=== PATIENT | female | born 1995 | race Caucasian/White ===

== ENCOUNTER → 2019-01-15 | Outpatient (CLI) | payer OTHER | LOC: LABNPT 11:30 | PROVIDERS: ATTEND Internal Medicine | DX: I13.0 Hypertensive heart and chronic kidney disease with heart failure and stage 1 through stage 4 chronic kidney disease, or unspecified chronic kidney disease (principal); I31.4 Cardiac tamponade; I50.9 Heart failure, unspecified; N18.9 Chronic kidney disease, unspecified | CPT/HCPCS: 85379 ==

== ENCOUNTER 2019-01-29 09:35 | Emergency (ER) | payer MEDICAID, OTHER ==
[~2019-01-29] VITALS: Ht 165.1 cm; Wt 61.2 kg
--- OUTSIDE RECORDS SUMMARY | 2019-01-29 09:41 | XMS REPORT ---
Author Author Migration, Doctor Organization [facility] Address Unknown Phone Unavailable Care Team Providers Care Bait Digger Name Role Phone Migration, Doctor Unavailable Unavailable PROBLEMS Type Condition ICD9-CM Code OXC42-NQ Code Onset Dates Condition Status SNOMED Code Problem Acute viral bronchiolitis 466.19 Jul, 0 440690860 Problem Tobacco use 305.1 05 Jul, 2015 0 093549391 Problem Irregular menses 626.4 05 Jun, 2013 0 835322034 Problem Shortness of breath 786.05 Jan, 0 787177027 Problem Asthma 493.90 Aug, 0 922152008 Problem Postop check Z09 May, 0 007643874 Problem Mild intermittent asthma with exacerbation J45.21 Jul, 0 400996982 Problem Supervision of high risk in third trimester V23.9 May, 0 89695190 Problem Asthma J45.909 18 Aug, 2013 0 760577185 Problem Influenza B 487.1 Nov, 0 40492686 Problem Irregular menses N92.6 05 Jun, 2013 0 242716758 Problem Shortness of breath R06.02 Jan, 0 398191485 Problem Tobacco use Z72.0 Jul, 0 180014880 Problem Expiratory wheezing 786.07 Jan, 0 7338399 Problem Mild intermittent asthma with exacerbation 493.92 Jul, 0 220925701 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51 Active 967906958 Problem Encounter for Nexplanon removal Z30.46 Nov, 0 Problem Influenza B J10.1 Nov, 0 60335633 Problem Postop check V67.00 May, 0 151319073 Problem Encounter for related examination in second trimester Z34.92 Jan, 0 06532295 Problem Supervision of high risk in third trimester O09.93 May, 0 55114204 Problem Asthma with acute exacerbation, unspecified asthma severity, unspecified whether persistent J45.901 Active [id number] ALLERGIES No Information ENCOUNTERS Encounter Location Date Diagnosis [address] [address] Dec, Severe persistent asthma with acute exacerbation J45.[address] [address] Dec, Mild persistent asthma with exacerbation J45.31 and Fever and chills R50.[address] [address] Nov, Asthma with acute exacerbation, unspecified asthma severity, unspecified whether persistent J45.901 and Acute non-recurrent maxillary sinusitis J01.[address] [address] Nov, [facility] [place] [address] [place] [address] Nov, [address] [address] Nov, [address] [address] Nov, Upper respiratory tract infection, unspecified type J06.9 and Asthma with acute exacerbation, unspecified asthma severity, unspecified whether persistent J45.901 [facility] [address] [address] Nov, Strep pharyngitis J02.0 [facility] [address] [address] Sep, [facility] [address] [place] [address] Sep, [facility] [address] [place] [address] Sep, [facility] [address] [address] Aug, [facility] [address] [place] [address] Jul, [facility] [address] [place] [address] Jan, [facility] [address] [place] [address] Jan, [facility] [address] [place] [address] Jan, [facility] [address] [address] Jan, IMMUNIZATIONS No Known Immunizations SOCIAL HISTORY Never Assessed REASON FOR VISIT EMR-[facility] PLAN OF CARE VITAL SIGNS MEDICATIONS Medication Instructions Dosage Frequency Start Date End Date Duration Status Ibuprofen 600 mg take 1 tablet (600 mg) by oral route every 6 hours as needed with food PRN Jan, Active RESULTS No Results PROCEDURES No Known procedures INSTRUCTIONS MEDICATIONS ADMINISTERED No Known Medications MEDICAL (GENERAL) HISTORY Type Description Date Medical History Asthma Medical History Bipolar 1 disorder Medical History Depression Surgical History c-sections x3 Hospitalization History childbirth Hospitalization History asthma
--- OUTSIDE RECORDS SUMMARY | 2019-01-29 09:41 | XMS REPORT | Continuity of Care Document ---
Author Organization Unknown Address Unknown Allergies There is no data. Medications There is no data. Problems There is no data. Procedures There is no data. Results There is no data. Encounters ACCT No. Visit Date/Time Discharge Status Pt. Type Provider Facility Loc./Unit Complaint [id number] 01/20/2011 16:39:00 01/20/2011 23:59:59 [facility] Outpatient [place]ITY GONZALES [place] [id number] 01/15/2019 14:15:00 01/15/2019 23:59:59 [facility] Outpatient LISSET OLIVEROS [facility]
[2019-01-29] MEDS ORDERED: RT-ALBUTEROL SULF 2.5 MG/3 ML PRE-MIX VIAL INH STA (09:50)
--- NOTE | 2019-01-29 09:52 | ED Respiratory ---
General Stated Complaint: SOB; CHEST PAIN Source: patient, family Exam Limitations: no limitations History of Present Illness Date Seen by Provider: Jan 29, 2019 Time Seen by Provider: 09:36 Initial Comments The patient presents to ER by private conveyance with chief complaint of having some chest pain today. Pain radiates to her back. She says it's due to her history of asthma and for the past months she's been out of control having some difficulty breathing requiring more of her nebulized DuoNeb. She says it only gives her minimal relief. It does take away her wheezes but her chest pain is worse when she takes Deep inspiration. Her chest pain is not worse with movement. She has no history of heart disease, blood pressure, CHF, diabetes, thyroid problems, cholesterol or significant familial history of coronary disease or sudden cardiac . Her chest pain on deep inspiration and shortness of breath has been ongoing event for the past month. 3 weeks ago she was put in the hospital at [place] for her asthma exacerbation. She said she was on steroids afterwards for about a week as well as as some kind of antibiotic medicine and she had a steroids her symptoms returned. She does not take an inhaled corticosteroid. She does take montelukast and has an MDI as well as nebulizer. She used twice last night with her last dose being 7 AM today. She tried Tylenol and ibuprofen for her chest discomfort and that did not help much either. She says in the past month both of her children have had influenza. She has had no fevers or chills. Her cough is nonproductive. She says she never tested positive for flu. She still smokes about half a pack per day for the past month; more prior to that. She is trying to stop. A few months ago she ran out of her inhaled steroid and just hasn't been back to her doctor to get it refilled. She says she used to be on Advair before that but it causes thrush so I switched her. Allergies and Home Medications Allergies Coded Allergies: divalproex sodium (Verified Adverse Reaction, Unknown, hallucinations, 01/29) Patient Home Medication List Home Medication List Reviewed: Yes Review of Systems Review of Systems Constitutional: No chills, No fever; malaise EENTM: No ear pain, No eye pain, No tearing Respiratory: cough; No phlegm; short of breath; No stridor; wheezing Cardiovascular: see HPI, chest pain; No edema, No Hx of Intervention, No palpitations, No syncope, No vascular heart diseas Gastrointestinal: No abdominal pain, No constipation, No diarrhea, No nausea, No vomiting Genitourinary: No discharge, No dysuria Musculoskeletal: back pain; No joint pain Past Qkyrvct-Dxbitt-Rgwzxp Hx Patient Social History Recreational Drug Use: No Smoking Status: Current Everyday Smoker Type Used: Cigarettes (half pack per day) Physical Exam Capillary Refill : Height: '" Weight: lbs. oz. kg; BMI Method: General Appearance: WD/WN, no apparent distress Eyes: Bilateral Eye Normal Inspection, Bilateral Eye PERRL, Bilateral Eye EOMI HEENT: PERRL/EOMI, normal ENT inspection, pharynx normal Respiratory: no respiratory distress, no accessory muscle use, wheezing (few expiratory at the bases bilateral) Cardiovascular: normal peripheral pulses, regular rate, rhythm, no edema Extremities: normal range of motion, non-tender, normal inspection, no pedal edema, no calf tenderness, normal capillary refill Neurologic/Psychiatric: alert, normal mood/affect, oriented x 3 Skin: normal color, warm/dry Progress/Results/Core Measures Suspected Sepsis SIRS Temperature: Pulse: Respiratory Rate: Laboratory Tests 01/29/19 09:45: White Blood Count 13.0H Blood Pressure / Mean: Laboratory Tests 01/29/19 09:45: Creatinine 0.69, Platelet Count 144, Total Bilirubin 0.4 Results/Orders Lab Results Laboratory Tests Test 01/29/19 09:45 01/29/19 09:50 Range/Units White Blood Count 13.0 H 4.3-11.0 10^3/uL Red Blood Count 4.39 4.35-5.85 10^6/uL Hemoglobin 14.1 11.5-16.0 G/DL Hematocrit 41 35-52 % Mean Corpuscular Volume 94 80-99 FL Mean Corpuscular Hemoglobin 32 25-34 PG Mean Corpuscular Hemoglobin Concent 34 32-36 G/DL Red Cell Distribution Width 13.0 10.0-14.5 % Platelet Count 144 130-400 10^3/uL Mean Platelet Volume 10.7 H 7.4-10.4 FL Neutrophils (%) (Auto) 73 42-75 % Lymphocytes (%) (Auto) 17 12-44 % Monocytes (%) (Auto) 7 0-12 % Eosinophils (%) (Auto) 3 0-10 % Basophils (%) (Auto) 0 0-10 % Neutrophils # (Auto) 9.5 H 1.8-7.8 X 10^3 Lymphocytes # (Auto) 2.2 1.0-4.0 X 10^3 Monocytes # (Auto) 0.9 0.0-1.0 X 10^3 Eosinophils # (Auto) 0.4 H 0.0-0.3 10^3/uL Basophils # (Auto) 0.1 0.0-0.1 10^3/uL Sodium Level 139 135-145 MMOL/L Potassium Level 3.6 3.6-5.0 MMOL/L Chloride Level 104 98-107 MMOL/L Carbon Dioxide Level 22 21-32 MMOL/L Anion Gap 13 5-14 MMOL/L Blood Urea Nitrogen 7 7-18 MG/DL Creatinine 0.69 0.60-1.30 MG/DL Estimat Glomerular Filtration Rate > 60 BUN/Creatinine Ratio 10 Glucose Level 109 H 70-105 MG/DL Calcium Level 8.5 8.5-10.1 MG/DL Corrected Calcium 8.8 8.5-10.1 MG/DL Total Bilirubin 0.4 0.1-1.0 MG/DL Aspartate Amino Transf (AST/SGOT) 12 5-34 U/L Alanine Aminotransferase (ALT/SGPT) 11 0-55 U/L Alkaline Phosphatase 50 40-136 U/L Total Protein 6.2 L 6.4-8.2 GM/DL Albumin 3.6 3.2-4.5 GM/DL Urine Color YELLOW Urine Clarity CLEAR Urine pH 6.5 5-9 Urine Specific [place] 1.020 1.016-1.022 Urine Protein NEGATIVE NEGATIVE Urine Glucose (UA) NEGATIVE NEGATIVE Urine Ketones NEGATIVE NEGATIVE Urine Nitrite NEGATIVE NEGATIVE Urine Bilirubin NEGATIVE NEGATIVE Urine Urobilinogen 0.2 NORMAL MG/DL Urine Leukocyte Esterase NEGATIVE NEGATIVE Urine RBC (Auto) NEGATIVE NEGATIVE Urine RBC NONE /HPF Urine WBC 0-2 /HPF Urine Squamous Epithelial Cells 5-10 /HPF Urine Crystals NONE /LPF Urine Bacteria NEGATIVE /HPF Urine Casts NONE /LPF Urine Mucus LARGE H /LPF Urine Culture Indicated NO Urine Test NEGATIVE NEGATIVE Urine Opiates Screen POSITIVE H NEGATIVE Urine Oxycodone Screen NEGATIVE NEGATIVE Urine Methadone Screen NEGATIVE NEGATIVE Urine Propoxyphene Screen NEGATIVE NEGATIVE Urine Barbiturates Screen NEGATIVE NEGATIVE Ur Tricyclic Antidepressants Screen NEGATIVE NEGATIVE Urine Phencyclidine Screen NEGATIVE NEGATIVE Urine Amphetamines Screen NEGATIVE NEGATIVE Urine Methamphetamines Screen NEGATIVE NEGATIVE Urine Benzodiazepines Screen NEGATIVE NEGATIVE Urine Cocaine Screen NEGATIVE NEGATIVE Urine Cannabinoids Screen POSITIVE H NEGATIVE My Orders Orders - ANTHONY ERNST Cbc With Automated Diff (01/29/19 09:47) Comprehensive Metabolic Panel (01/29/19 09:47) Drug Screen Stat (Urine) (01/29/19 09:47) Ua Culture If Indicated (01/29/19 09:47) Chest Pa/Lat (2 View) (01/29/19 09:47) Hcg,Qualitative Urine (01/29/19 09:50) Albuterol Pre-Mix Nebs (Rt) (Proventil (01/29/19 09:50) Svn Small Volume Nebulizer (01/29/19 09:50) Vital Signs/I&O Capillary Refill : Progress Note #1: Time: 10:03 Progress Note Patient has some pleuritic chest pain secondary to what sounds like inadequately treated asthma exacerbations. Perhaps she should be started on an inhaled corticosteroid if she is not already. She follows with Dr. Sanz. We can start her on oral steroids today if her blood work and chest x-ray don't demonstrate any evidence of a occult pneumonia. We'll give her a single breathing treatment 2.5 mg of albuterol and reassess to see if the scant wheezes are gone away. She just took ibuprofen before coming so we can offer Toradol before she leaves if she is still having significant chest discomfort. K Tracs report was unremarkable. Progress Note #2: Time: 11:10 Progress Note After the albuterol inhaler the patient has better air movement but still some slight wheezes heard at the bases. She would be appropriate for steroids. Since she received a 5 day course a few weeks ago we'll probably put her on a 7 day course today. Her primary care doctor is out of town for a week so organomegaly ahead and give her a prescription for Advair. We discussed what causes thrush and how important it is that she rinse her mouth out after every use of the Advair. ECG Initial ECG Impression Date: Jan 29, 2019 Initial ECG Impression Time: 09:38 Initial ECG Rate: 86 Initial ECG Rhythm: Normal Sinus Initial ECG Intervals: Normal Initial ECG Impression: Normal Initial ECG Comparisson: No Previous ECG Available Comment No significant ST elevation or depression. Diagnostic Imaging Diagonstic Imaging: Xray Plain Films/CT/US/NM/MRI: chest (2v) Comments [facility] [place], [place] NAME: YULI HILL [facility] REC#: [id number] PT STATUS: REG ER : 1995 PHYSICIAN: ANTHONY ERNST MD ADMIT DATE: 01/29/19/ER FS Draft Date of Exam:01/29/19 CHEST PA/LAT (2 VIEW) PA and lateral chest at 950 hours. INDICATION: Shortness of breath. There are no prior studies available for comparison. FINDINGS: Heart size is within normal limits. The lungs are clear. There is no evidence for failure, pneumonia or for pleural effusion. Mediastinum is not widened. The osseous structures are intact. IMPRESSION: There is no evidence for active disease. Dictated on workstation # [id number] Dict: 01/29/19 1018 Trans: 01/29/19 1023 [id number] Interpreted by: CIPRIANO CAMPBELL MD Electronically signed by: Reviewed: Reviewed by Me Departure Impression Primary Impression: Pleurisy Additional Impression: Asthma Qualified Codes: J45.901 - Unspecified asthma with (acute) exacerbation Disposition: 01 HOME, SELF-CARE Condition: Stable Departure-Patient Inst. Decision time for Depature: 11:12 Referrals: LISSET OLIVEROS MD (PCP/Family) Primary Care Physician Patient Instructions: Pleuritic Chest Pain (DC) Add. Discharge Instructions: Your chest pain will be improved with accommodation of the steroids 2 tablets daily for the first 5 days and then 2 more days of one tablet a day. Instead of using ibuprofen, please use either 2 tablets of eijx-lso-fpbycnm Naprosyn twice a day or the prescription Naprosyn one tablet twice a day for the next 2 weeks to bring down the inflammation in your chest. You may still use Tylenol 1000 g every 8 hours as necessary for breakthrough pain. Continue to use your breathing treatments as prescribed. Plan to make an appointment with your primary provider in the next 1-2 weeks to reassess your asthma and pleuritic chest pain as well as discuss getting back on a scheduled inhaled corticosteroid. 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 After using the Advair you need to rinse and spit some water in your mouth to prevent thrush. Scripts Naproxen (Naprosyn) 500 Mg Tablet 500 MG PO BID for 14 Days, #30 TAB 0 Refills Prov: ANTHONY ERNST 01/29/19 Prednisone (Prednisone) 20 Mg Tab 40 MG PO DAILY, #12 TAB 0 Refills 2 tablets daily for 5 days 1 tablet daily for 2 days Prov: ANTHONY ERNST 01/29/19 Fluticasone/Salmeterol (Advair 250-50 Diskus) 1 Each Blst.w.dev 1 EACH IH BID for 30 Days, #1 EA 0 Refills Prov: ANTHONY ERNST 01/29/19 Work/School Note: Work Release Form Date Seen in the Emergency Department: Jan 29, 2019 Return to Work: Jan 30, 2019 Restrictions: No Restrictions Copy Copies To 1: LISSET OLIVEROS MD, TITUS J Jan 29, 2019 09:52
[2019-01-29 10:20] LABS: HCG,QUALITATIVE URINE NEGATIVE (NEGATIVE)
[2019-01-29 10:21] LABS: AMPHETAMINE SCREEN, URINE NEGATIVE (NEGATIVE); CANNABINOID SCREEN, URINE POSITIVE (NEGATIVE); COCAINE SCREEN URINE NEGATIVE (NEGATIVE); METHAMPHETAMINE SCREEN URINE S NEGATIVE (NEGATIVE); OPIATE SCREEN URINE POSITIVE (NEGATIVE)
[2019-01-29 10:22] LABS: BARBITURATE SCREEN URINE NEGATIVE (NEGATIVE); BENZODIAZEPINES SCREEN URINE NEGATIVE (NEGATIVE); METHADONE STAT NEGATIVE (NEGATIVE); OXYCODONE STAT NEGATIVE (NEGATIVE); PROPOXYPHENE STAT NEGATIVE (NEGATIVE); TRICYCLIC ANTIDEPRESSANTS SCRE NEGATIVE (NEGATIVE)
--- NOTE | 2019-01-29 10:23 | Diagnostic Imaging Report ---
PA and lateral chest at 950 hours. INDICATION: Shortness of breath. There are no prior studies available for comparison. FINDINGS: Heart size is within normal limits. The lungs are clear. There is no evidence for failure, pneumonia or for pleural effusion. Mediastinum is not widened. The osseous structures are intact. IMPRESSION: There is no evidence for active disease. Dictated by: Dictated on workstation # [id number]
[2019-01-29 10:24] LABS: BACTERIA,URINE NEGATIVE /HPF; BILIRUBIN,URINE NEGATIVE (NEGATIVE); CLARITY,URINE CLEAR; COLOR,URINE YELLOW; GLUCOSE, URINE (UA) NEGATIVE (NEGATIVE); KETONES,URINE NEGATIVE (NEGATIVE); LEUKOCYTE ESTERASE ,URINE NEGATIVE (NEGATIVE); NITRITE,URINE NEGATIVE (NEGATIVE); PH,URINE 6.5 (5-9); PROTEIN,URINE NEGATIVE (NEGATIVE); UROBILINOGEN,URINE 0.2 MG/DL (NORMAL); WBC,URINE 0-2 /HPF
[2019-01-29 10:26] LABS: BASOPHILS % (AUTO) 0 % (0-10); EOSINOPHILS % (AUTO) 3 % (0-10); HEMATOCRIT 41 % (35-52); HEMOGLOBIN 14.1 G/DL (11.5-16.0); LYMPHOCYTES % (AUTO) 17 % (12-44); MEAN CORPUSCULAR HEMOGLOBIN 32 PG (25-34); MEAN CORPUSCULAR HGB CONC 34 G/DL (32-36); MEAN CORPUSCULAR VOLUME 94 FL (80-99); MEAN PLATELET VOLUME 10.7 FL (7.4-10.4); MONOCYTES % (AUTO) 7 % (0-12); NEUTROPHILS # (AUTO) 9.5 X 10^3 (1.8-7.8); NEUTROPHILS % (AUTO) 73 % (42-75); PLATELET COUNT 144 10^3/uL (130-400)
[2019-01-29 10:27] LABS: BASOPHILS # (AUTO) 0.1 10^3/uL (0.0-0.1); EOSINOPHILS # (AUTO) 0.4 10^3/uL (0.0-0.3); LYMPHOCYTES # (AUTO) 2.2 X 10^3 (1.0-4.0); MONOCYTES # (AUTO) 0.9 X 10^3 (0.0-1.0)
[2019-01-29 10:28] LABS: BUN/CREATININE RATIO 10; CARBON DIOXIDE 22 MMOL/L (21-32); CHLORIDE 104 MMOL/L (98-107); CREATININE SERUM 0.69 MG/DL (0.60-1.30); GFR ESTIMATED > 60; POTASSIUM 3.6 MMOL/L (3.6-5.0); SODIUM 139 MMOL/L (135-145)
[2019-01-29 10:29] LABS: ALANINE AMINOTRANSFERASE 11 U/L (0-55); ALKALINE PHOSPHATASE 50 U/L (40-136); BILIRUBIN,TOTAL 0.4 MG/DL (0.1-1.0); CALCIUM 8.5 MG/DL (8.5-10.1); GLUCOSE 109 MG/DL (70-105); TOTAL PROTEIN 6.2 GM/DL (6.4-8.2)
[2019-01-29 10:30] LABS: ALBUMIN 3.6 GM/DL (3.2-4.5)
[2019-01-29] MEDS ORDERED: FLUT1DIS26 IH (11:17)
[2019-01-29] MEDS ORDERED: PRD20T PO (11:17)
[2019-01-29] MEDS ORDERED: NAPR-1071 PO (11:17)
[2019-01-29 11:29] VITALS: BP 109/65
== END 2019-01-29 11:34 | disposition home or self-care (01) ==
LOC: EDUNIT# 09:35 → ER FS 09:38
DX: R07.81 Pleurodynia (principal); J45.909 Unspecified asthma, uncomplicated; F17.210 Nicotine dependence, cigarettes, uncomplicated; Z88.8 Allergy status to other drugs, medicaments and biological substances
CPT/HCPCS: 36415; 71046; 80053; 80306; 81000; 84703; 85025

== ENCOUNTER 2019-04-25 05:10 | Emergency (ER) | payer MEDICAID ==
[~2019-04-25] VITALS: Ht 165.1 cm; Wt 61.2 kg
[~2019-04-25 05:10] MED LIST: FLUT1DIS26 IH; NAPR-1071 PO; PRD20T PO
[2019-04-25] MEDS ORDERED: RT-ALBUTEROL/IPRATROPIUM 3 ML (DUONEB) VIAL ONE (05:11)
--- OUTSIDE RECORDS SUMMARY | 2019-04-25 05:16 | XMS REPORT | Continuity of Care Document ---
Author Organization Unknown Address Unknown Allergies Active Description Code Type Severity Reaction Onset Reported/Identified Relationship to Patient Clinical Status Yes DEPAKOTE UNKNOWN OTHER Medications Medication Packaging Start Date Stop Date Route Dosage Sig ACETAMINOPHEN ORAL TABLET 325mg(Tylenol) MG 01/15/2019 02/14/2019 PRN EVERY 6 Hour ALPRAZOLAM TAB 0.25 MG (XANAX) MG 01/15/2019 01/25/2019 PRN Q6H CLONIDINE TAB 0.1 MG (CATAPRES) MG 01/15/2019 01/22/2019 PRN Q6H CALCIUM CARBONATE TAB 500 MG (TUMS) MG 01/15/2019 01/22/2019 PRN Q6H DIPHENHYDRAMINE CAP 25 MG (BENADRYL) MG 01/15/2019 01/22/2019 PRN Q6H HYDROCODONE/APAP 5MG/325MG TAB 5 MG/325MG (DEJUAN-TAB 5/325) TAB 01/15/2019 01/25/2019 PRN Q6H GUAIFENESIN/CODEINE LIQ (ROBITUSSIN AC) ml 01/15/2019 01/22/2019 PRN Q4H ACETAMINOPHEN SUPPOS SUP 650 MG (TYLENOL) MG 01/15/2019 01/22/2019 PRN Q4H ONDANSETRON VIAL INJ 4 MG/2CC (ZOFRAN 2CC VIAL) MG 01/15/2019 01/22/2019 PRN Q4H ALBUTEROL SVN 2.5MG/3CC LIQ 2.5 MG (PROVENTIL IDA 2.5MG/3CC) MG 01/15/2019 01/22/2019 Q4H&0200,0600,1000,1400,1800,2200 ALUM/MAG/SIMETH 30CC LIQ (MYLANTA PLUS) cc 01/15/2019 01/25/2019 PRN Q4H GUAIFENESIN - DM LIQ (ROBITUSSIN DM) MLS 01/15/2019 01/22/2019 PRN Q4H METHYLPREDNISOLONE VIAL INJ 125 MG/2CC (SOLU-MEDROL VIAL) MG 01/15/2019 01/20/2019 Q6H&0600,1200,1800,2359 Docusate sodium 100mg oral capsule (COLACE) 01/15/2019 02/14/2019 PRN BID BUDESONIDE INHALATION SUSP AMP 0.5 MG/2CC (PULMICORT) MG 01/15/2019 01/22/2019 BID&0800,2000 LACTULOSE SYRUP LIQ 20 GM/30CC (CHRONULAC SYRUP) GM 01/15/2019 02/14/2019 BID&0800,2000 MONTELUKAST TAB 10 MG (SINGULAIR) MG 01/15/2019 02/13/2019 Daily&2100 MELATONIN TAB 3 MG (MELATONIN) MG 01/15/2019 01/21/2019 PRN QHS ZOLPIDEM TAB 5 MG (AMBIEN) MG 01/15/2019 01/22/2019 PRN QHS BISACODYL TAB 5 MG (DULCOLAX) MG 01/16/2019 01/22/2019 PRN Daily MONTELUKAST TAB 10 MG (SINGULAIR) MG 01/16/2019 02/14/2019 Daily&0900 POLYETHYLENE GLYCOL POWDER UD PWD (MIRALAX 17GM UNIT DOSE PAKS) gm 01/16/2019 01/22/2019 Daily&0900 BISACODYL SUPPOS 10 MG (DULCOLAX SUPPOS) MG 01/16/2019 01/22/2019 PRN Daily MILK OF MAGNESIA LIQ ml 01/16/2019 02/14/2019 PRN Daily Problems Date Dx Coded Attending Type Code Diagnosis Diagnosed By 01/17/2019 Yenny Coyne 493.91 ASTHMA, UNSPECIFIED TYPE, WITH STATUS ASTHMATICUS 01/17/2019 Yenny Coyne J45.902 UNSPECIFIED ASTHMA WITH STATUS ASTHMATICUS Procedures There is no data. Results Test Result Range Sed Rate - 01/15/19 11:33 Sed Rate 2 mm/hr 9-15 Arterial Blood Gas - 01/15/19 11:33 Base -5.00 mmol/L 1.80-4.20 HCO3 19 mmol/L 20-31 O2 Sat 98 RM AIR % 95-100 pCO2 29 mm/Hg 35-45 pH 7.43 7.35-7.45 PO2 92 mm/Hg 80-95 EKG - 01/15/19 11:33 EKG Complete Urinalysis - 01/15/19 11:33 Icotest N/A Negative Urine Volume Urine Volume Sufficient (10mL) Urine-Appearance Clear Clear Urine-Bacteria Negative Urine-Bilirubin Negative Negative Urine-Blood Negative Negative Urine-Color Yellow Colorless-Lt. Yellow Urine-Epithelial Cells 0-5/HPF Urine-Glucose Negative Negative Urine-Ketones 1+ Negative Urine-Leukocytes Negative Negative Urine-Nitrite Negative Negative Urine-Other Urine Saved if Culture Needed (48hrs from time of collection) Urine-pH 6.5 5-8.5 Urine-Protein Negative Negative Urine-RBC Negative Urine-Specific [place] 1.020 1.000-1.030 Urine-WBC Negative Urobilinogen 0.2 E.U./dL 0.2-1.0 Encounters ACCT No. Visit Date/Time Discharge Status Pt. Type Provider Facility Loc./Unit Complaint [id number] 01/15/2019 11:08:00 01/17/2019 08:02:00 DIS Inpatient [facility] ICU [id number] 01/15/2019 11:49:41 Document Registration [id number] 04/01/2019 15:15:00 04/01/2019 23:59:59 CLS Outpatient LISSET OLIVEROS [facility] [id number] 01/20/2011 16:39:00 01/20/2011 23:59:59 CLS Outpatient CAITY GONZALES DDS
[2019-04-25] MEDS ORDERED: RT-ALBUTEROL/IPRATROPIUM 3 ML (DUONEB) VIAL INH ONE (05:30)
[2019-04-25 05:55] VITALS: BP 109/53
--- NOTE | 2019-04-25 06:02 | ED Respiratory ---
General Chief Complaint: Respiratory Problems Stated Complaint: ASTHMA ATTACK Nursing Triage Note: PT. REPORTED THAT SHE WAS SLEEPING AND WOKE UP WITH WHEEZING BUT SHE WAS NOT ABLE TO USE HER INHALER BECAUSE SHE WAS NOT HOME TO USE IT. Source: patient History of Present Illness Date Seen by Provider: Apr 25, 2019 Time Seen by Provider: 05:44 Initial Comments 24-year-old female presenting with complaints of shortness of breath. She states that she had not planned on staying in town last night and that she stayed over with a friend. When she woke up this morning she was having an asthma attack. She had not brought her inhaler with her from home. [place] minutes away. Because she was so short of breath she came into the emergency department as she did not think she could make it home. She had been exposed to cats and other allergens at her friend's house. She uses inhalers and nebulizers at home. She denied feeling sick earlier in the day. She has not been having any fever or chills. She has not been coughing. Allergies and Home Medications Allergies Coded Allergies: divalproex sodium (Verified Adverse Reaction, Unknown, hallucinations, 01/29/19) Home Medications Fluticasone/Salmeterol 1 Each Blst.w.dev, 1 EACH IH BID Prescribed by: ANTHONY ERNST on 01/29/19 111 Naproxen 500 Mg Tablet, 500 MG PO BID Prescribed by: ANTHONY ERNST on 01/29/19 111 Prednisone 20 Mg Tab, 40 MG PO DAILY 2 tablets daily for 5 days 1 tablet daily for 2 days Prescribed by: ANTHONY ERNST on 01/29/19 1117 Patient Home Medication List Home Medication List Reviewed: Yes Review of Systems Review of Systems Constitutional: No chills, No fever EENTM: no symptoms reported Respiratory: see HPI Cardiovascular: no symptoms reported Gastrointestinal: no symptoms reported Genitourinary: no symptoms reported Musculoskeletal: no symptoms reported Skin: no symptoms reported Past Yuzshvf-Mmcuvu-Ompoiv Hx Past Med/Social Hx: Reviewed Nursing Past Med/Soc Hx Patient Social History Type Used: Cigarettes 2nd Hand Smoke Exposure: Yes Recent Foreign Travel: No Contact w/Someone Who Travel: No Recent Infectious Disease Expo: No Recent Hopitalizations: Yes ([facility], asthma exacerbation) Physical Abuse: No Sexual Abuse: No Mistreated: No Fear: No Seasonal Allergies Seasonal Allergies: No Past Medical History Surgeries: Yes Section Respiratory: Yes Asthma Cardiac: No Neurological: No Genitourinary: No Gastrointestinal: No Musculoskeletal: No Endocrine: No HEENT: No Cancer: No Psychosocial: No Integumentary: No Blood Disorders: No Physical Exam Vital Signs - First Documented 04/25/19 04/25/19 05:17 05:24 Temp 97.2 Pulse 88 Resp 24 B/P (MAP) 109/53 (71) Pulse Ox 91 O2 Delivery Room Air Capillary Refill : Less Than 3 Seconds Height: 5'5.00" Weight: 135lbs. oz. 61.996992cl; BMI Method:Stated General Appearance: WD/WN, mild distress HEENT: PERRL/EOMI, pharynx normal Neck: non-tender, supple, normal inspection Respiratory: chest non-tender, decreased breath sounds, wheezing Cardiovascular: normal peripheral pulses, regular rate, rhythm Neurologic/Psychiatric: alert, normal mood/affect, oriented x 3 Skin: normal color, warm/dry Progress/Results/Core Measures Suspected Sepsis Recent Fever Within 48 Hours: No Infection Criteria Present: None New/Unexplained Altered Menta: No Sepsis Screen: No Definite Risk SIRS Temperature:97.2 Pulse: 88 Respiratory Rate: 24 Blood Pressure 109 /53 Mean: 71 Results/Orders My Orders Orders - SHAKEEL CROCKETT MD Albuterol/Ipra Inhalation Soln (Duoneb I (04/25/19 05:11) Albuterol/Ipra Inhalation Soln (Duoneb I (04/25/19 05:30) Svn Small Volume Nebulizer (04/25/19 05:16) Medications Given in ED Vital Signs/I&O 04/25/19 04/25/19 04/25/19 05:17 05:24 05:55 Temp 97.2 97.2 Pulse 88 88 Resp 24 24 B/P (MAP) 109/53 (71) 109/53 (71) Pulse Ox 91 91 98 O2 Delivery Room Air Room Air Capillary Refill : Less Than 3 Seconds Blood Pressure Mean: 71 Progress Note : Progress Note Given a DuoNeb breathing treatment on arrival. This helped with her wheezing and she was having much better air movement after receiving a treatment. Her O2 sats had improved after the nebulizer treatment as well. Will discharge to home. She denied needing a refill on her medications as she states that the last time she tried to get one of those from the emergency Department her insurance had refused to fill it. Departure Impression Primary Impression: Asthma attack Qualified Codes: J45.21 - Mild intermittent asthma with (acute) exacerbation Disposition: HOME, SELF-CARE Condition: Stable Departure-Patient Inst. Decision time for Depature: 06:01 Referrals: LISSET OLIVEROS MD (PCP/Family) Primary Care Physician Patient Instructions: Asthma, Adult (DC), Avoiding Asthma Triggers Add. Discharge Instructions: Consider having an inhaler with you when you might stay over in town and not be going home Follow up with primary provider for further concerns or more problems All discharge instructions reviewed with patient and/or family. Voiced understanding. SHAKEEL CROCKETT MD Apr 25, 2019 06:02
== END 2019-04-25 06:09 | disposition home or self-care (01) ==
LOC: EDUNIT# 05:10 → ER FS 05:11
DX: J45.901 Unspecified asthma with (acute) exacerbation (principal); Z88.8 Allergy status to other drugs, medicaments and biological substances; Z77.22 Contact with and (suspected) exposure to environmental tobacco smoke (acute) (chronic)
CPT/HCPCS: 94640

== ENCOUNTER 2020-02-07 19:57 | Inpatient (IN) | payer MEDICAID ==
[~2020-02-07] VITALS: Ht 165 cm; Wt 59.6 kg
[2020-02-07] VITALS (8 sets, daily range): BP systolic 102–117; BP diastolic 62–82
[~2020-02-07 19:57] MED LIST changes: -AMOX1TAB11 PO; -AZIT250T12 PO; -IPRA3AMP31; -IPRATROPIUM/; -LEVO500T80; -PRD10T; -PRED10TA22 PO; -RT-ALBUINH IH
[2020-02-07] MEDS ORDERED: LACTATED RINGERS 1,000 ML IV ONE ×2 (20:06→21:27)
--- OUTSIDE RECORDS SUMMARY | 2020-02-07 20:08 | XMS REPORT ---
Author Author Rhona Canales Doctor Organization [facility] Address Unknown Phone Unavailable Care Team Providers Care Civil Engineering Technician Name Role Phone Migration, Doctor Unavailable Unavailable PROBLEMS Type Condition ICD9-CM Code WXK00-MH Code Onset Dates Condition S tatus SNOMED Code Problem Asthma J45.909 Aug, Active 6841746 01 Problem Mild intermittent asthma with exacerbation J45.21 Active 242773648 Problem Moderate asthma with exacerbation, unspecified w hether persistent J45.901 Active 897066752 Problem Moderate persistent asthma with exacerbation J45.4 1 Active 342675169 Problem Moderate persistent asthma with acute exacerbation J45.41 Active 732688197623521 Problem Moderate persistent asthma with acute exacerbation J45.41 Active 531516705049381 Problem Mild intermittent asthma with exacerbation J45.21 Active 727369169 ALLERGIES No Information ENCOUNTERS Encounter Location Date Diagnosis [facility] [address] [place] [address] Oct, Strep pharyngitis J02.0 and Flu-like symptoms R68.[address] [place] [address] Oct, Acute non-recurrent maxillar y sinusitis J01.00 [facility] [address] [place] [address] Sep, Foot pain, left M79.672 [address] [place] [address] Sep, Moderate asthma with exacerb ation, unspecified whether persistent J45.901 ; History of asthma Z87.09 and Pharyngitis, unspecified etiology J02.9 [facility] [address] [place] [address] Sep, Mild intermittent asthma wit h exacerbation J45.21 and Pharyngitis, unspecified etiology J02.9 [facility] [address] [place] [address] Aug, [address] [place] [address] Aug, Encounter for Nexplanon bre jennie Z30.46 and Family planning Z30.09 [facility] [address] [id number] [place] [address] Aug, [address] [place] [address] Aug, Acute non-recurrent maxillar y sinusitis J01.00 and Asthma with acute exacerbation, unspecified asthma severity, unspecified whether persistent J45.901 [facility] [address] [place] [address] Jun, [address] [place] [address] Jun, Pap smear vag w [facility] R87.6 20 [facility] [address] [place] [address] Jun, Moderate persistent asthma w ith acute exacerbation J45.41 and Acute non-recurrent pansinusitis J01.40 [facility] [address] [place] [address] May, Moderate persistent asthma w ith exacerbation J45.41 ; Sore throat J02.9 and Shortness of breath R06.02 [facility] [address] [place] [address] Apr, [facility] [address] [place] [address] Apr, [address] [place] [address] Apr, [address] [place] [address] Apr, [facility] [address] [place] [address] Apr, [facility] [address] [place] [address] Mar, Acute non-recurrent maxillar y sinusitis J01.00 and Asthma J45.909 [facility] [address] [place] [address] February, Pyelonephritis, acute N10 [facility] [address] [place] [address] Jan, [facility] [address] [place] [address] Dec, Severe persistent asthma wit h acute exacerbation J45.51 [facility] [address] [place] [address] Dec, Mild persistent asthma with exacerbation J45.31 and Fever and chills R50.9 [facility] [address] [place] [address] Nov, Asthma with acute exacerbati on, unspecified asthma severity, unspecified whether persistent J45.901 and Acute non-recurrent maxillary sinusitis J01.00 [facility] [address] [place] [address] Nov, [facility] [address] [place] [address] Nov, [facility] [address] [place] [address] Nov, [facility] [address] [place] [address] Nov, Upper respiratory tract infe ction, unspecified type J06.9 and Asthma with acute exacerbation, unspecified asthma severity, unspecified whether persistent J45.901 [facility] [address] [place] [address] Nov, Strep pharyngitis J02.0 [facility] [id number] [place] [address] Sep, [facility] [id number] [place] [address] Sep, [facility] [id number] [place] [address] Sep, [facility] [address] [address] Aug, [facility] [id number] [place] [address] Jul, [facility] [id number] [place] [address] Jan, [facility] [id number] [place] [address] Jan, [facility] [id number] [place] [address] Jan, [facility] [id number] [place] [address] Jan, IMMUNIZATIONS No Known Immunizations SOCIAL HISTORY Never Assessed REASON FOR VISIT PLAN OF CARE VITAL SIGNS MEDICATIONS No Known Medications RESULTS No Results PROCEDURES No Known procedures INSTRUCTIONS MEDICATIONS ADMINISTERED No Known Medications MEDICAL (GENERAL) HISTORY Type Description Date Medical History Asthma Medical History Bipolar 1 disorder Medical History Depression Surgical History c-sections x3 Hospitalization History childbirth Hospitalization History asthma
--- OUTSIDE RECORDS SUMMARY | 2020-02-07 20:09 | XMS REPORT | Continuity of Care Document ---
Author Organization Unknown Address Unknown Phone Unavailable Allergies Active Description Code Type Severity Reaction Onset Reported/Identified Relationship to Patient Clinical Status Yes DEPAKOTE UNKNOWN OTHER Yes divalproex sodium [id number] Drug Allergy Unknown hallucinations 01/29 Yes No Known Drug Allergies [id number] Drug Allergy Unknown N/A 01/29/2019 Medications Medication Packaging Start Date St op Date Route Dosage Sig ACETAMINOPHEN ORAL TABLET 325mg(Tylenol) MG 01/15/2019 02/14/2019 PRN EVERY 6 Hour ALPRAZOLAM TAB 0.25 MG (XANAX) MG 01/15/2019 01/25/2019 PRN Q6H CLONIDINE TAB 0.1 MG (CATAPRES) MG 01/15/2019 01/22/2019 PRN Q6H CALCIUM CARBONATE TAB 500 MG (TUMS) MG 01/15/2019 01/22/2019 PRN Q6H DIPHENHYDRAMINE CAP 25 MG (BENADRYL) MG 01/15/2019 01/22/2019 PRN Q6H HYDROCODONE/APAP 5MG/325MG T AB 5 MG/325MG (DEJUAN-TAB 5/325) TAB 01/15/2019 01/25/2019 PRN Q6H GUAIFENESIN/CODEINE LIQ (ROBITUSSIN AC) ml 01/15/2019 01/22/2019 PRN Q4H ACETAMINOPHEN SUPPOS SUP 650 MG (TYLENOL) MG 01/15/2019 01/22/2019 PRN Q4H ONDANSETRON VIAL INJ 4 MG/2CC (ZOFRAN 2CC VIAL) MG 01/15/2019 01/22/2019 PRN Q4H ALBUTEROL SVN 2.5MG/3CC LIQ 2.5 MG (PROVENTIL IDA 2.5MG/3CC) MG 01/15/2019 01/22/2019 Q4H&0200,0600,1000,1400,1800 ,2200 ALUM/MAG/SIMETH 30CC LIQ (MYLANTA PLUS) cc 01/15/2019 01/25/2019 PRN Q4H GUAIFENESIN - DM LIQ (ROBITUSSIN DM) MLS 01/15/2019 01/22/2019 PRN Q4H METHYLPREDNISOLONE VIAL INJ 125 MG/2CC (SOLU-MEDROL VIAL) MG 01/15/2019 01/20/2019 Q6H&0600,1200,1800,2359 Docusate sodium 100mg oral capsule (COLACE ) 01/15/2019 02/14/2019 PRN BID BUDESONIDE INHALATION SUSP A MP 0.5 MG/2CC (PULMICORT) MG 01/15/2019 01/22/2019 BID&0800,2000 LACTULOSE SYRUP LIQ 20 GM/30 CC (CHRONULAC SYRUP) GM 01/15/2019 02/14/2019 BID&0800,2000 MONTELUKAST TAB 10 MG (SINGULAIR) MG 01/15/2019 02/13/2019 Daily&2100 MELATONIN TAB 3 MG (MELATONIN) MG 01/15/2019 01/21/2019 PRN QHS ZOLPIDEM TAB 5 MG (AMBIEN) M G 01/15/2019 01/22/2019 PRN QHS BISACODYL TAB 5 MG (DULCOLAX) MG 01/16/2019 01/22/2019 PRN Daily MONTELUKAST TAB 10 MG (SINGULAIR) MG 01/16/2019 02/14/2019 Daily&0900 POLYETHYLENE GLYCOL POWDER U D PWD (MIRALAX 17GM UNIT DOSE PAKS) gm 01/16/2019 01/22/2019 Daily&0900 BISACODYL SUPPOS 10 MG (DULCOLAX SUPPOS) MG 01/16/2019 01/22/2019 PRN Daily MILK OF MAGNESIA LIQ ml 01/16/2019 02/14/2019 PRN Daily Problems Date Dx Coded Attending Type Code Diagnosis Diagnosed By 01/16/2019 YENNY VEGA DO, Ot I13.0 HYP HRT CHR KDNY DIS W HRT FAIL AND ST 01/16/2019 YENNY VEGA DO, Ot I31.4 CARDIAC TAMPONADE 01/16/2019 YENNY VEGA DO, Ot I50.9 HEART FAILURE, UNSPECIFIED 01/16/2019 YENNY VEGA DO, Ot N18.9 CHRONIC KIDNEY DISEASE, UNSPECIFIED 01/17/2019 Yenny Vega 493.91 ASTHMA, UNSPECIFIED TYPE, WITH STATUS ASTHMATICUS 01/17/2019 Yenny Vega J45.902 UNSPECIFIED ASTHMA WITH STATUS ASTHMATICUS 01/29/2019 SUJATA ELDER, ANTHONY J Ot F17.210 NICOTINE DEPENDENCE, CIGARETTES, UNCOMPL 01/29/2019 SUJATA ELDER, ANTHONY J Ot J45.909 UNSPECIFIED ASTHMA, UNCOMPLICATED 01/29/2019 SUJATA ELDER, ANTHONY J Ot R07. 81 PLEURODYNIA 01/29/2019 SUJATA ELDER, ANTHONY J Ot R07. 9 CHEST PAIN, UNSPECIFIED 01/29/2019 SUJATA ELDER, ANTHONY J Ot Z88. 8 ALLERGY STATUS TO OTH DRUG/MEDS/BIOL SUB 01/31/2019 SUJATA ELDER, ANTHONY J Ot F17.210 NICOTINE DEPENDENCE, CIGARETTES, UNCOMPL 01/31/2019 SUJATA ELDER, ANTHONY J Ot J45.909 UNSPECIFIED ASTHMA, UNCOMPLICATED 01/31/2019 ANTHONY ERNST MD J Ot R07. 81 PLEURODYNIA 01/31/2019 SUJATA ELDER, ANTHONY Mathis Ot R07. 9 CHEST PAIN, UNSPECIFIED 01/31/2019 SUJATA ELDER, ANTHONY J Ot Z88. 8 ALLERGY STATUS TO OTH DRUG/MEDS/BIOL SUB 02/12/2019 VEGA DO, YENNY Ot I13.0 HYP HRT CHR KDNY DIS W HRT FAIL AND ST 02/12/2019 VEGA DO, YENNY Ot I31.4 CARDIAC TAMPONADE 02/12/2019 VEGA DO, YENNY Ot I50.9 HEART FAILURE, UNSPECIFIED 02/12/2019 VEGA DO, YENYN Ot N18.9 CHRONIC KIDNEY DISEASE, UNSPECIFIED 02/14/2019 VEGA DO, YENNY Ot I13.0 HYP HRT CHR KDNY DIS W HRT FAIL AND ST 02/14/2019 VEGA DO, YENNY Ot I31.4 CARDIAC TAMPONADE 02/14/2019 VEGA DO, YENNY Ot I50.9 HEART FAILURE, UNSPECIFIED 02/14/2019 VEGA DO, YENNY Ot N18.9 CHRONIC KIDNEY DISEASE, UNSPECIFIED 04/25/2019 SHAKEEL CROCKETT MD, Ot J45.9 01 UNSPECIFIED ASTHMA WITH (ACUTE) EXACERBA 04/25/2019 SHAKEEL CROCKETT MD Ot R06.0 2 SHORTNESS OF BREATH 04/25/2019 SHAKEEL CROCKETT MD, Ot Z77.2 2 CNTCT W AND EXPSR TO ENVIRON TOBACCO SMO 04/25/2019 SHAKEEL CROCKETT MD, Ot Z88.8 ALLERGY STATUS TO OTH DRUG/MEDS/BIOL SUB 04/30/2019 SHAKEEL CROCKETT MD, Ot J45.9 01 UNSPECIFIED ASTHMA WITH (ACUTE) EXACERBA 04/30/2019 SHAKEEL CROCKETT MD, Ot R06.0 2 SHORTNESS OF BREATH 04/30/2019 SHAKEEL CROCKETT MD, Ot Z77.2 2 CNTCT W AND EXPSR TO ENVIRON TOBACCO SMO 04/30/2019 SHAKEEL CROCKETT MD, Ot Z88.8 ALLERGY STATUS TO OTH DRUG/MEDS/BIOL SUB 02/07/2020 VEGA DO, YENNY Ot I13.0 HYP HRT CHR KDNY DIS W HRT FAIL AND ST 02/07/2020 VEGA DO, YENNY Ot I31.4 CARDIAC TAMPONADE 02/07/2020 VEGA DO, YENNY Ot I50.9 HEART FAILURE, UNSPECIFIED 02/07/2020 VEGA DO, YENNY Ot N18.9 CHRONIC KIDNEY DISEASE, UNSPECIFIED Procedures There is no data. Results Test Result Range Fibrin D-dimer FEU measurement in platel et poor plasma (mass/volume) - 01/15/19 11:30 Fibrin D-dimer FEU measurement in platelet poor plasma (mass/volume) 0.28 ug/mL 0.00-0.49 Sed Rate - 01/15/19 11:33 Sed Rate [...] Negative Urine-Blood Negative Negative Urine-Color Yellow Colorless-Lt. [place] ow Urine-Epithelial Cells 0-5/HPF Urine-Glucose Negative Negative Urine-Ketones 1+ Negative Urine-Leukocytes Negative Negative Urine-Nitrite Negative Negative Urine-Other Urine Saved if Culture Need ed (48hrs from time of collection) Urine-pH 6.5 5-8.5 Urine-Protein Negative Negative Urine-RBC Negative Urine-Specific [place] 1.020 1.000-1 .030 Urine-WBC Negative Urobilinogen 0.2 E.U./dL 0.2-1.0 Complete blood count (CBC) with automate d white blood cell (WBC) differential - 01/29/19 09:45 Blood leukocytes automated count (number/volume) 13.0 10*3/uL 4.3-11.0 Blood erythrocytes automated count (number/volume) 4.39 10*6/uL 4.35-5.85 Venous blood hemoglobin measurement (mass/volume) 14.1 g/dL 11.5-16.0 Blood hematocrit (volume fraction) 41 % 35-52 Automated erythrocyte mean corpuscular volume 94 [ foz_us] 80-99 Automated erythrocyte mean corpuscular h emoglobin (mass per erythrocyte) 32 pg 25-34 Automated erythrocyte mean corpuscular h emoglobin concentration measurement (mass/volume) 34 g/dL 32-36 Automated erythrocyte distribution width ratio 13. 0 % 10.0- 14.5 Automated blood platelet count (count/volume) 144 10*3/uL 130-400 Automated blood platelet mean volume measurement 10.7 [foz_us] 7.4-10.4 Automated blood neutrophils/100 leukocytes 73 % 42-75 Automated blood lymphocytes/100 leukocytes 17 % 12-44 Blood monocytes/100 leukocytes 7 % 0-12 Automated blood eosinophils/100 leukocytes 3 % 0-10 Automated blood basophils/100 leukocytes 0 % 0-10 Blood neutrophils automated count (number/volume) 9.5 10*3 1.8-7.8 Blood lymphocytes automated count (number/volume) 2.2 10*3 1.0-4.0 Blood monocytes automated count (number/volume) 0. 9 10*3 0.0-1.0 Automated eosinophil count 0.4 10*3/uL 0 .0-0.3 Automated blood basophil count (count/volume) 0.1 10*3/uL 0.0-0.1 Comprehensive metabolic panel - 01/29/19 09:45 Serum or plasma sodium measurement (moles/volume) 139 mmol/L 135-145 Serum or plasma potassium measurement (moles/volume) 3.6 mmol/L 3.6-5.0 Serum or plasma chloride measurement (moles/volume) 104 mmol/L 98-107 Carbon dioxide 22 mmol/L 21-32 Serum or plasma anion gap determination (moles/volume) 13 mmol/L 5-14 Serum or plasma urea nitrogen measurement (mass/volume ) 7 mg/dL 7-18 Serum or plasma creatinine measurement (mass/volume) 0.69 mg/dL 0.60-1.30 Serum or plasma urea nitrogen/creatinine mass ratio 10 NRG Serum or plasma creatinine measurement w ith calculation of estimated glomerular filtration rate > NRG Serum or plasma glucose measurement (mass/volume) 109 mg/dL 70-105 Serum or plasma calcium measurement (mass/volume) 8.5 mg/dL 8.5-10.1 Serum or plasma total bilirubin measurement (mass/volu me) 0.4 mg/dL 0.1-1.0 Serum or plasma alkaline phosphatase oriana surement (enzymatic activity/volume) 50 U/L 40-136 Serum or plasma aspartate aminotransfera se measurement (enzymatic activity/volume) 12 U/L 5-34 Serum or plasma alanine aminotransferase measurement (enzymatic activity/volume) 11 U/L 0-55 Serum or plasma protein measurement (mass/volume) 6.2 g/dL 6.4-8.2 Serum or plasma albumin measurement (mass/volume) 3.6 g/dL 3.2-4.5 CALCIUM CORRECTED 8.8 mg/dL 8.5-10.1 Urine beta human chorionic gonadotropin (hCG) measurement - 01/29/19 09:50 Urine beta human chorionic gonadotropin (hCG) measurem ent NEGATIVE NEGATIVE Urine drug screening test - 01/29/19 09: 50 Urine phencyclidine detection by screening method NEGATIVE NEGATIVE Urine benzodiazepines detection by screening method NEGATIVE NEGATIVE Urine cocaine detection NEGATIVE NEGATI VE Urine amphetamines detection by screening method N EGATIVE NEGATIVE Urine methamphetamine detection by screening method NEGATIVE NEGATIVE Urine cannabinoids detection by screening method P OSITIVE NEGATIVE Urine opiates detection by screening method POSITI VE NEGATIVE Urine barbiturates detection NEGATIVE N EGATIVE Screening urine tricyclic antidepressants detection NEGATIVE NEGATIVE Urine methadone detection by screening method NEGA TIVE NEGATIVE Urine oxycodone detection NEGATIVE NEGA TIVE Urine propoxyphene detection NEGATIVE N EGATIVE Complete urinalysis with reflex to cultu re - 01/29/19 09:50 Urine color determination YELLOW NRG Urine clarity determination CLEAR NR G Urine pH measurement by test strip 6.5 5-9 Specific gravity of urine by test strip 1.020 1.016-1.022 Urine protein assay by test strip, semi-quantitative NEGATIVE NEGATIVE Urine glucose detection by automated test strip NE GATIVE NEGATIVE Erythrocytes detection in urine sediment by light micr oscopy NEGATIVE NEGATIVE Urine ketones detection by automated test strip NE GATIVE NEGATIVE Urine nitrite detection by test strip NEGATIVE NEGATIVE Urine total bilirubin detection by test strip NEGA TIVE NEGATIVE Urine urobilinogen measurement by automated test strip (mass/volume) 0.2 mg/dL NORMAL Urine leukocyte esterase detection by dipstick NEG ATIVE NEGATIVE Automated urine sediment erythrocyte cou nt by microscopy (number/high power field) NONE NRG Automated urine sediment leukocyte count by microscopy (number/high power field) [HPF] NRG Bacteria detection in urine sediment by light microsco py NEGATIVE NRG Squamous epithelial cells detection in u rine sediment by light microscopy 5-10 NRG Crystals detection in urine sediment by light microsco py NONE NRG Casts detection in urine sediment by light microscopy NONE NRG Mucus detection in urine sediment by light microscopy LARGE NRG Complete urinalysis with reflex to culture NO NRG SUREPATH PAP RFX HPV mRNA E6/E7 - 14:51 CLINICAL INFORMATION: NRG LMP: NRG PREV. PAP: NRG PREV. BX: NRG SOURCE: Vagina NRG STATEMENT OF ADEQUACY: NRG INTERPRETATION/RESULT: NRG EMBROIDERY MACHINE OPERATOR: NRG REVIEW EMBROIDERY MACHINE OPERATOR: NRG INFECTION: NRG COMMENT NRG Complete blood count (CBC) with automate d white blood cell (WBC) differential - 02/07/20 15:35 Blood leukocytes automated count (number/volume) 15.6 10*3/uL 4.3-11.0 Blood erythrocytes automated count (number/volume) 4.67 10*6/uL 4.35-5.85 Venous blood hemoglobin measurement (mass/volume) 14.6 g/dL 11.5-16.0 Blood hematocrit (volume fraction) 43 % 35-52 Automated erythrocyte mean corpuscular volume 93 [ foz_us] 80-99 Automated erythrocyte mean corpuscular h emoglobin (mass per erythrocyte) 31 pg 25-34 Automated erythrocyte mean corpuscular h emoglobin concentration measurement (mass/volume) 34 g/dL 32-36 Automated erythrocyte distribution width ratio 12. 6 % 10.0- 14.5 Automated blood platelet count (count/volume) 175 10*3/uL 130-400 Automated blood platelet mean volume measurement 11.4 [foz_us] 7.4-10.4 Automated blood neutrophils/100 leukocytes 95 % 42-75 Automated blood lymphocytes/100 leukocytes 4 % 12-44 Blood monocytes/100 leukocytes 1 % 0-12 Automated blood eosinophils/100 leukocytes 0 % 0-10 Automated blood basophils/100 leukocytes 0 % 0-10 Blood neutrophils automated count (number/volume) 14.8 10*3 1.8-7.8 Blood lymphocytes automated count (number/volume) 0.6 10*3 1.0-4.0 Blood monocytes automated count (number/volume) 0. 2 10*3 0.0-1.0 Automated eosinophil count 0.0 10*3/uL 0 .0-0.3 Automated blood basophil count (count/volume) 0.0 10*3/uL 0.0-0.1 Comprehensive metabolic panel - 02/07/20 15:35 Serum or plasma sodium measurement (moles/volume) 140 mmol/L 135-145 Serum or plasma potassium measurement (moles/volume) 4.2 mmol/L 3.6-5.0 Serum or plasma chloride measurement (moles/volume) 102 mmol/L 98-107 Carbon dioxide 23 mmol/L 21-32 Serum or plasma anion gap determination (moles/volume) 15 mmol/L 5-14 Serum or plasma urea nitrogen measurement (mass/volume ) 9 mg/dL 7-18 Serum or plasma creatinine measurement (mass/volume) 0.73 mg/dL 0.60-1.30 Serum or plasma urea nitrogen/creatinine mass ratio 12 NRG Serum or plasma creatinine measurement w ith calculation of estimated glomerular filtration rate > NRG Serum or plasma glucose measurement (mass/volume) 116 mg/dL 70-105 Serum or plasma calcium measurement (mass/volume) 9.5 mg/dL 8.5-10.1 Serum or plasma total bilirubin measurement (mass/volu me) 0.2 mg/dL 0.1-1.0 Serum or plasma alkaline phosphatase oriana surement (enzymatic activity/volume) 65 U/L 40-136 Serum or plasma aspartate aminotransfera se measurement (enzymatic activity/volume) 17 U/L 5-34 Serum or plasma alanine aminotransferase measurement (enzymatic activity/volume) 13 U/L 0-55 Serum or plasma protein measurement (mass/volume) 7.4 g/dL 6.4-8.2 Serum or plasma albumin measurement (mass/volume) 4.4 g/dL 3.2-4.5 CALCIUM CORRECTED 9.2 mg/dL 8.5-10.1 Manual absolute plasma cell count - 01/21 05/11 15:35 Blood monocytes/100 leukocytes 1 % NRG Manual blood segmented neutrophils/100 leukocytes 89 % NRG Blood band neutrophils/100 leukocytes 6 % NRG Manual blood lymphocytes/100 leukocytes 4 % NRG Manual eosinophils/100 leukocytes in nose 0 % NRG Manual blood basophils/100 leukocytes 0 % NRG Blood erythrocyte morphology finding identification NORMAL NRG Fibrin D-dimer FEU measurement in platel et poor plasma (mass/volume) - 02/07/20 15:35 Fibrin D-dimer FEU measurement in platelet poor plasma (mass/volume) 0.37 ug/mL 0.00-0.49 Encounters ACCT No. Visit Date/Time Discharge Status Pt. Type Provider Facility Loc./Unit Complaint [id number] 01/15/2019 11:08:00 01/17/2019 08:02: 00 DIS Inpatient [facility] enter ICU [id number] 01/15/2019 11:49:41 Document Registration [id number] 04/25/2019 05:11:00 06:09:00 DIS Emergency KEIRA ELDER, SHAKEEL Isabel [facility] ER FS ASTHMA ATTACK [id number] 01/29/2019 09:38:00 11:34:00 DIS Emergency ANTHONY ERNST MD [facility] ER FS SOB; CHEST PAIN [id number] 01/15/2019 11:30:00 23:59:59 CLS Outpatient YENNY VEGA DO [facility] LABNPT [id number] 02/07/2020 19:59:[address] Emergency SARAH MARTINEZ MD [facility] ER SOB [id number] 02/07/2020 15:13:[address] Outpatient SASCHA ENNIS APRN [facility] LAB FS SOB,ACUTE MIDLINE THORACIC B ACK PAIN [id number] 02/07/2020 13:01:[address] Outpatient SASCHA ENNIS APRN [facility] RAD FS R06.02 M54.6 [id number] 11/16/2019 16:50:00 11/16/2019 23:59:5 9 C[facility] [id number] 07/02/2019 14:45:00 Document Registration [id number] 01/20/2011 16:39:00 01/20/2011 23:59: 59 CLS Outpatient CAITY GONZALES DDS
[2020-02-07] MEDS ORDERED: PRD10T ×2 (20:35)
[2020-02-07] MEDS ORDERED: LEVO500T80 ×2 (20:35)
[2020-02-07] MEDS ORDERED: IPRATROPIUM/ ×2 (20:35)
[2020-02-07] MEDS ORDERED: IPRA3AMP31 ×2 (20:35)
[2020-02-07 20:43] LABS: BASOPHILS % (AUTO) 0 % (0-10); EOSINOPHILS % (AUTO) 0 % (0-10); HEMATOCRIT 40 % (35-52); HEMOGLOBIN 14.1 G/DL (11.5-16.0); LYMPHOCYTES # (AUTO) 0.6 X 10^3 (1.0-4.0); LYMPHOCYTES % (AUTO) 6 % (12-44); MEAN CORPUSCULAR HEMOGLOBIN 32 PG (25-34); MEAN CORPUSCULAR HGB CONC 35 G/DL (32-36); MEAN CORPUSCULAR VOLUME 92 FL (80-99); MEAN PLATELET VOLUME 11.3 FL (7.4-10.4); MONOCYTES # (AUTO) 0.2 X 10^3 (0.0-1.0); MONOCYTES % (AUTO) 2 % (0-12); NEUTROPHILS # (AUTO) 10.2 X 10^3 (1.8-7.8); NEUTROPHILS % (AUTO) 93 % (42-75); PLATELET COUNT 168 10^3/uL (130-400)
[2020-02-07 20:44] LABS: BILIRUBIN,URINE NEGATIVE (NEGATIVE); CLARITY,URINE CLEAR; COLOR,URINE YELLOW; GLUCOSE, URINE (UA) NEGATIVE (NEGATIVE); KETONES,URINE NEGATIVE (NEGATIVE); LEUKOCYTE ESTERASE ,URINE NEGATIVE (NEGATIVE); NITRITE,URINE NEGATIVE (NEGATIVE); PROTEIN,URINE NEGATIVE (NEGATIVE)
[2020-02-07 20:57] LABS: BACTERIA,URINE TRACE /HPF
[2020-02-07 21:01] LABS: FIBRIN DEGRADATION PRODUCTS 0.28 UG/ML (0.00-0.49); PROTHROMBIN TIME PATIENT 13.4 SEC (12.2-14.7)
[2020-02-07 21:04] LABS: ALANINE AMINOTRANSFERASE 14 U/L (0-55); ALKALINE PHOSPHATASE 56 U/L (40-136); BILIRUBIN,TOTAL 0.2 MG/DL (0.1-1.0); BUN/CREATININE RATIO 11; CALCIUM 9.1 MG/DL (8.5-10.1); CARBON DIOXIDE 21 MMOL/L (21-32); CHLORIDE 104 MMOL/L (98-107); CREATININE SERUM 0.84 MG/DL (0.60-1.30); GFR ESTIMATED > 60; GLUCOSE 118 MG/DL (70-105); POTASSIUM 4.1 MMOL/L (3.6-5.0); SODIUM 136 MMOL/L (135-145); TOTAL PROTEIN 6.9 GM/DL (6.4-8.2)
[2020-02-07 21:17] LABS: LYMPHOCYTES % (MANUAL) 6 %; MONOCYTES % (MANUAL) 1 %; NEUTROPHILS % (MANUAL) 93 %; RBC MORPH NORMAL
[2020-02-07 21:18] LABS: ERYTHROCYTE SEDIMENTATION RATE 10 MM/HR (0-20)
[2020-02-07] MEDS ORDERED: cefTRIAXone FOR IV USE 1,000 MG in WATER (STERILE) FOR INJECTION 10 ML IV STA (21:27)
--- NOTE | 2020-02-07 22:14 | ED General ---
General Chief Complaint: Respiratory Problems Stated Complaint: SOB Nursing Triage Note: c/o chest pressure with deep breaths, soa. seen at [facility] for same et. reports "concerning CT" denies exposure Nursing Sepsis Screen: No Definite Risk Source of Information: Patient Exam Limitations: No Limitations History of Present Illness Date Seen by Provider: Feb 07, 2020 Time Seen by Provider: 21:33 Initial Comments Here with report of shortness of air, cough, central chest discomfort and asthma concerns. Seen at [facility] in [place] and had COVID screening. This was negative x 2. She did get a chest x-ray, CT scan on labs today which were concerning for right upper lung infiltrate. She was started on Levaquin and prednisone yesterday. Patient states that her asthma has been pretty active recently and has caused her problems. She does smoke cigarettes but has only mild to smoke 2 cigarettes per day recently. [facility] providers concerned about infiltrate appearance on CT and sent her here for further evaluation and concerns for possible COVID-19 despite the negative test. CT report notes mucus plugging which would fit with the asthma exacerbation with follow-up on pneumonia. Timing/Duration: 4-5 Days Severity: Moderate Modifying Factors: improves with Medication Associated Systoms: No Chest Pain; Cough, Fever/Chills; No Nausea/Vomiting; Shortness of Air; No Weakness Allergies and Home Medications Allergies Coded Allergies: divalproex sodium (Verified Adverse Reaction, Unknown, hallucinations, 01/29/19) Home Medications Fluticasone/Salmeterol 1 Each Blst.w.dev, 1 EACH IH BID Prescribed by: ANTHONY ERNST on 01/29/19 111 Naproxen 500 Mg Tablet, 500 MG PO BID Prescribed by: ANTHONY ERNST on 01/29/19 1117 Patient Home Medication List Home Medication List Reviewed: Yes Review of Systems Review of Systems Constitutional: see HPI EENTM: no symptoms reported Respiratory: see HPI, cough, short of breath, wheezing Cardiovascular: see HPI; No edema, No palpitations Gastrointestinal: No abdominal pain, No nausea, No vomiting Genitourinary: no symptoms reported Musculoskeletal: no symptoms reported All Other Systems Reviewed Negative Unless Noted: Yes Past Wewzzch-Nsuwpf-Fpvlro Hx Past Med/Social Hx: Reviewed Nursing Past Med/Soc Hx Patient Social History Alcohol Use: Denies Use Recreational Drug Use: No Smoking Status: Current Everyday Smoker Type Used: Cigarettes 2nd Hand Smoke Exposure: Yes Recent Foreign Travel: No Contact w/Someone Who Travel: No Recent Infectious Disease Expo: No Recent Hopitalizations: No Physical Abuse: No Sexual Abuse: No Mistreated: No Fear: No Immunizations Up To Date Tetanus Booster (TDap): Unknown Seasonal Allergies Seasonal Allergies: No Past Medical History Surgeries: Yes Section Respiratory: Yes Asthma Cardiac: No Neurological: No : No (implant) Genitourinary: No Gastrointestinal: No Musculoskeletal: No Endocrine: No HEENT: No Cancer: No Psychosocial: No Integumentary: No Blood Disorders: No Family Medical History Reviewed Nursing Family Hx Physical Exam-Suspected Sepsis Physical Exam Vital Signs Vital Signs - First Documented 02/07/20 20:13 Temp 36.8 Pulse 90 Resp 16 B/P (MAP) 113/77 (89) O2 Delivery Room Air Capillary Refill : Less Than 3 Seconds Blood Pressure Mean: 89 Height, Weight, BMI Height: 5'5.00" Weight: 135lbs. oz. 61.664155bh; 21.00 BMI Method:Stated General Appearance: No Apparent Distress, WD/WN HEENT: PERRL/EOMI, Pharynx Normal Neck: Non Tender, Supple Respiratory: Lungs Clear, Normal Breath Sounds Cardiovascular: Regular Rate, Rhythm, No Murmur Gastrointestinal: Non Tender, Soft Extremity: Normal Range of Motion, Non Tender Neurologic/Psychiatric: Alert, Oriented x3 Skin: normal color, warm/dry Focused Exam Lactate Level 02/07/20 20:25: Lactic Acid Level 3.88*H Lactic Acid Level Laboratory Tests Test 02/07/20 20:25 Lactic Acid Level 3.88 MMOL/L (0.50-2.00) *H Progress/Results/Core Measures Suspected Sepsis Recent Fever Within 48 Hours: No Infection Criteria Present: None New/Unexplained Altered Menta: No Sepsis Screen: No Definite Risk SIRS Temperature: Pulse: 90 Respiratory Rate: 16 Laboratory Tests 02/07/20 20:25: White Blood Count 11.0 Blood Pressure 113 /77 Mean: 89 02/07/20 20:25: Lactic Acid Level 3.88*H Laboratory Tests 02/07/20 20:25: Creatinine 0.84, INR Comment 1.0, Platelet Count 168, Total Bilirubin 0.2 Results/Orders Lab Results Laboratory Tests Test 4/17/20 20:20 02/07/20 20:25 Range/Units Urine Color YELLOW Urine Clarity CLEAR Urine pH 8.0 5-9 Urine Specific [place] 1.010 L 1.016-1.022 Urine Protein NEGATIVE NEGATIVE Urine Glucose (UA) NEGATIVE NEGATIVE Urine Ketones NEGATIVE NEGATIVE Urine Nitrite NEGATIVE NEGATIVE Urine Bilirubin NEGATIVE NEGATIVE Urine Urobilinogen 0.2 < = 1.0 MG/DL Urine Leukocyte Esterase NEGATIVE NEGATIVE Urine RBC (Auto) NEGATIVE NEGATIVE Urine RBC NONE /HPF Urine WBC NONE /HPF Urine Squamous Epithelial Cells 2-5 /HPF Urine Crystals NONE /LPF Urine Bacteria TRACE /HPF Urine Casts NONE /LPF Urine Mucus NEGATIVE /LPF Urine Culture Indicated CULTURE PENDING White Blood Count 11.0 4.3-11.0 10^3/uL Red Blood Count 4.37 4.35-5.85 10^6/uL Hemoglobin 14.1 11.5-16.0 G/DL Hematocrit 40 35-52 % Mean Corpuscular Volume 92 80-99 FL Mean Corpuscular Hemoglobin 32 25-34 PG Mean Corpuscular Hemoglobin Concent 35 32-36 G/DL Red Cell Distribution Width 13.0 10.0-14.5 % Platelet Count 168 130-400 10^3/uL Mean Platelet Volume 11.3 H 7.4-10.4 FL Neutrophils (%) (Auto) 93 H 42-75 % Lymphocytes (%) (Auto) 6 L 12-44 % Monocytes (%) (Auto) 2 0-12 % Eosinophils (%) (Auto) 0 0-10 % Basophils (%) (Auto) 0 0-10 % Neutrophils # (Auto) 10.2 H 1.8-7.8 X 10^3 Lymphocytes # (Auto) 0.6 L 1.0-4.0 X 10^3 Monocytes # (Auto) 0.2 0.0-1.0 X 10^3 Eosinophils # (Auto) 0.0 0.0-0.3 10^3/uL Basophils # (Auto) 0.0 0.0-0.1 10^3/uL Neutrophils % (Manual) 93 % Lymphocytes % (Manual) 6 % Monocytes % (Manual) 1 % Blood Morphology Comment NORMAL Erythrocyte Sedimentation Rate 10 0-20 MM/HR Prothrombin Time 13.4 12.2-14.7 SEC INR Comment 1.0 0.8-1.4 Activated Partial Thromboplast Time 27 24-35 SEC D-Dimer 0.28 0.00-0.49 UG/ML Sodium Level 136 135-145 MMOL/L Potassium Level 4.1 3.6-5.0 MMOL/L Chloride Level 104 98-107 MMOL/L Carbon Dioxide Level 21 21-32 MMOL/L Anion Gap 11 5-14 MMOL/L Blood Urea Nitrogen 9 7-18 MG/DL Creatinine 0.84 0.60-1.30 MG/DL Estimat Glomerular Filtration Rate > 60 BUN/Creatinine Ratio 11 Glucose Level 118 H 70-105 MG/DL Lactic Acid Level 3.88 *H 0.50-2.00 MMOL/L Calcium Level 9.1 8.5-10.1 MG/DL Corrected Calcium 9.1 8.5-10.1 MG/DL Total Bilirubin 0.2 0.1-1.0 MG/DL Aspartate Amino Transf (AST/SGOT) 14 5-34 U/L Alanine Aminotransferase (ALT/SGPT) 14 0-55 U/L Alkaline Phosphatase 56 40-136 U/L Lactate Dehydrogenase 167 125-220 U/L C-Reactive Protein High Sensitivity 1.67 H 0.00-0.50 MG/DL Total Protein 6.9 6.4-8.2 GM/DL Albumin 4.0 3.2-4.5 GM/DL Procalcitonin 0.04 <0.10 NG/ML My Orders Orders - SARAH MARTINEZ MD Cbc With Automated Diff (02/07/20 20:06) Comprehensive Metabolic Panel (02/07/20 20:06) Blood Culture (02/07/20 20:06) Sputum Culture (02/07/20 20:) Urinalysis (02/07/20 20:) Urine Culture (02/07/20 20:06) Protime With Inr (02/07/20 20:06) Partial Thromboplastin Time (02/07/20 20:06) Ed Iv/Invasive Line Start (02/07/20 20:) Vital Signs Adult Sepsis Patie Q15M (02/07/20 20:06) O2 (02/07/20 20:06) Remove Rings In Anticipation O (02/07/20 20:06) Lactic Acid Analyzer (02/07/20 20:) Fibrin Degradation Products (02/07/20 20:06) Procalcitonin (Pct) (02/07/20 20:06) Hs C Reactive Protein (02/07/20 20:06) Erythrocyte Sedimentation Rate (02/07/20 20:06) LDH (02/07/20 20:06) Lactated Ringers (Lr 1000 Ml Iv Solution (02/07/20 20:06) Manual Differential (02/07/20 20:25) Ceftriaxone For Iv Use (Rocephin For I (02/07/20 21:27) Lactated Ringers (Lr 1000 Ml Iv Solution (02/07/20 21:27) Covid-19 External Lab Results (02/07/20 22:06) Medications Given in ED Current Medications Medications Dose Ordered Sig/Osman Route Start Time Stop Time Status Last Admin Dose Admin Lactated Ringer's 1,000 ml @ 0 mls/hr Q0M ONCE IV 02/07/20 20:06 02/07/20 20:09 DC 02/07/20 20:25 0 MLS/HR Lactated Ringer's 1,000 ml @ 0 mls/hr Q0M ONCE IV 02/07/20 21:27 02/07/20 21:28 DC 02/07/20 21:33 0 MLS/HR Vital Signs/I&O 02/07/20 20:13 Temp 36.8 Pulse 90 Resp 16 B/P (MAP) 113/77 (89) O2 Delivery Room Air Capillary Refill : Less Than 3 Seconds Blood Pressure Mean: 89 Progress Note : Progress Note Seen and evaluated. Reviewed labs, chest x-ray and CT scan done earlier today. Labs compared to this evening's laboratory studies. CT is concerning for mucus plugging an infiltrate. Sepsis protocol initiated in COVID prescreening labs done. Patient had lactic acid of 3.88. LR was given on arrival at 1 L. This was repeated 1 for a total of 2 L which exceeds 30 mL/kg. She is not hypoxic or hypotensive. Rocephin 1 g IV given. She has been on Levaquin and prednisone. 2204: I did discuss the case with Dr. Coyne and she accepts patient for admission, inpatient status and request cardiac step down bed. Also request Dr. Dsouza on consult tomorrow. Those orders were placed. 2214: I attest a focused exam at this time. Patient remains normotensive and in no distress. Diagnostic Imaging Diagonstic Imaging: Xray Plain Films/CT/US/NM/MRI: chest Comments X-ray done earlier today but inserted here for information purposes and review [facility] [place], [place] NAME: YULI HILL [facility] REC#: [id number] PT STATUS: REG CLI : 1995 PHYSICIAN: SASCHA ENNIS APRN ADMIT DATE: 02/07/20/RAD FS Signed Date of Exam:02/07/20 CHEST PA/LAT (2 VIEW) EXAMINATION: Chest 2 view HISTORY: Shortness of breath. Chest pain. History of asthma. COMPARISON: Chest radiograph on 01/29/2019. FINDINGS: There is volume loss and consolidative opacities throughout the right upper lobe. The remainder of the lungs are well aerated. The cardiac silhouette is unremarkable. No large pleural effusion or pneumothorax. No acute osseous abnormalities. IMPRESSION: 1. Volume loss and opacities throughout the right upper lobe. This appearance can be seen with compression of the right upper lobe bronchus secondary to hilar or mediastinal mass. Given these findings, further evaluation with CT chest with contrast is recommended. Faxed to Sascha Ennis APRN at 1:35 p.m. by cvmi. Dictated by: Dictated on workstation # [id number] Dict: 02/07/20 1328 Trans: 02/07/20 1337 [facility] [id number] Interpreted by: BOAZ MONTAGUE DO Electronically signed by: BOAZ MONTAGUE DO 02/07/20 1337 Diagonstic Imaging: CT Plain Films/CT/US/NM/MRI: chest Comments CT done earlier today but inserted here for information purposes [facility] [place], [place] NAME: YULI HILL [facility] REC#: [id number] PT STATUS: REG CLI : 1995 PHYSICIAN: SASCHA ENNIS APRN ADMIT DATE: 02/07/20/LAB FS Signed Date of Exam:04/17/20 CT ANGIO CHEST W PROCEDURE: CT angiography of the chest with contrast. TECHNIQUE: Multiple contiguous axial images were obtained through the chest after uneventful bolus administration of intravenous contrast. 3D reconstructed CTA MIP acquisitions were also performed. Auto Exposure Controls were utilized during the CT exam to meet ALARA standards for radiation dose reduction. INDICATION: Shortness of breath, abnormal chest x-ray. COMPARISON: February 07, 2020. FINDINGS: No significant adenopathy within the chest. No aneurysmal dilatation of the thoracic aorta. The heart is within normal limits in size. No significant pericardial effusion. Minimal density within the anterior mediastinum is felt to relate to residual thymic tissue. No pleural effusion. No pneumothorax. Mild lingular reticular opacities. Otherwise, the left lung is clear. Dense opacities with associated extensive volume loss is noted within the right upper lobe with adjacent groundglass opacities within the aerated right upper lobe. There does appear to be narrowing and near obstruction of the right upper lobe bronchus with internal densities present without definite obstructing extrinsic mass lesion. There is resulting volume loss with rightward shift of the trachea. No significant filling defect within the central or segmental pulmonary arteries. The visualized upper abdomen is unremarkable. No acute osseous abnormality. IMPRESSION: Extensive consolidation and volume loss within the right upper lobe. This may be on the basis of mucous plugging as no definite extrinsic mass lesion is seen to account for the narrowing and obstruction of the right upper lobe bronchus. However, radiographic follow-up is recommended in 7-10 days to ensure resolution. If this does not resolve over the next one to two weeks, then bronchoscopic evaluation should be considered. Minimal lingular atelectasis and/or pneumonitis. No significant pulmonary embolus. Dictated by: Dictated on workstation # [id number] Dict: 02/07/20 1549 Trans: 02/07/20 1629 [id number] Interpreted by: PALOMO GUTIÉRREZ MD Electronically signed by: PALOMO GUTIÉRREZ MD 02/07/20 1629 Departure Communication (Admissions) Time/Spoke to Admitting Phy: 22:04 Impression Primary Impression: Right upper lobe pneumonia Qualified Codes: J18.1 - Lobar pneumonia, unspecified organism Additional Impression: Asthma Qualified Codes: J45.901 - Unspecified asthma with (acute) exacerbation Disposition: ADMITTED INPATIENT Condition: Stable Admissions Decision to Admit Reason: Admit from ER (General) Decision to Admit/Date: Feb 07, 2020 Time/Decision to Admit Time: 22:04 Departure-Patient Inst. Referrals: LISSET OLIVEROS MD (PCP/Family) Primary Care Physician SARAH MARTINEZ MD Feb 07, 2020 22:14
--- OUTSIDE RECORDS SUMMARY | 2020-02-07 22:27 | XMS REPORT | Continuity of Care Document ---
Author Organization Unknown Address Unknown Phone Unavailable Allergies Active Description Code Type Severity Reaction Onset Reported/Identified Relationship to Patient Clinical Status Yes DEPAKOTE UNKNOWN OTHER Yes divalproex sodium [id number] Drug Allergy Unknown hallucinations 01/29 Yes No Known Drug Allergies [id number] Drug Allergy Unknown N/A 01/29/2019 Medications Medication [...] R07. 9 CHEST PAIN, UNSPECIFIED 01/29/2019 SUJATA ELEDR, ANTHONY J Ot Z88. 8 ALLERGY STATUS [...] I50.9 HEART FAILURE, UNSPECIFIED 02/12/2019 VEGA DO, YENNY Ot N18.9 CHRONIC KIDNEY DISEASE, UNSPECIFIED 02/14/2019 [...] Negative Urine-Blood Negative Negative Urine-Color Yellow Colorless-Lt. [place] ow Urine-Epithelial Cells 0-5/HPF Urine-Glucose Negative Negative Urine-Ketones 1+ Negative Urine-Leukocytes Negative Negative Urine-Nitrite Negative Negative Urine-Other Urine Saved if Culture Need ed (48hrs from time of collection) Urine-pH 6.5 5-8.5 Urine-Protein Negative Negative Urine-RBC Negative Urine-Specific [place] 1.020 1.000-1 .030 Urine-WBC Negative Urobilinogen 0.2 [...] NRG STATEMENT OF ADEQUACY: NRG INTERPRETATION/RESULT: NRG HEADER SET UP OPERATOR: NRG REVIEW HEADER SET UP OPERATOR: NRG INFECTION: NRG COMMENT NRG Complete [...] platelet poor plasma (mass/volume) 0.37 ug/mL 0.00-0.49 Complete urinalysis with reflex to cultu re - 02/07/20 20:20 Urine color determination YELLOW NRG Urine clarity determination CLEAR NR G Urine pH measurement by test strip 8.0 5-9 Specific gravity of urine by test strip 1.010 1.016-1.022 Urine protein assay by test strip, [...] by automated test strip (mass/volume) 0.2 mg/dL < = 1.0 Urine leukocyte esterase detection by dipstick NEG ATIVE NEGATIVE Automated urine sediment erythrocyte cou nt by microscopy (number/high power field) NONE NRG Automated urine sediment leukocyte count by microscopy (number/high power field) NONE NRG Bacteria detection in urine sediment by light microsco py TRACE NRG Squamous epithelial cells detection in u rine sediment by light microscopy 2-5 NRG Crystals detection in urine sediment by light microsco py NONE NRG Casts detection in urine sediment by light microscopy NONE NRG Mucus detection in urine sediment by light microscopy NEGATIVE NRG Complete urinalysis with reflex to culture CULTURE PENDING NRG Complete blood count (CBC) with automate d white blood cell (WBC) differential - 02/07/20 20:25 Blood leukocytes automated count (number/volume) 11.0 10*3/uL 4.3-11.0 Blood erythrocytes automated count (number/volume) 4.37 10*6/uL 4.35-5.85 Venous blood hemoglobin measurement (mass/volume) 14.1 g/dL 11.5-16.0 Blood hematocrit (volume fraction) 40 % 35-52 Automated erythrocyte mean corpuscular volume 92 [ foz_us] 80-99 Automated erythrocyte mean corpuscular h emoglobin (mass per erythrocyte) 32 pg 25-34 Automated erythrocyte mean corpuscular h emoglobin concentration measurement (mass/volume) 35 g/dL 32-36 Automated erythrocyte distribution width ratio 13. 0 % 10.0- 14.5 Automated blood platelet count (count/volume) 168 10*3/uL 130-400 Automated blood platelet mean volume measurement 11.3 [foz_us] 7.4-10.4 Automated blood neutrophils/100 leukocytes 93 % 42-75 Automated blood lymphocytes/100 leukocytes 6 % 12-44 Blood monocytes/100 leukocytes 2 % 0-12 Automated blood eosinophils/100 leukocytes 0 % 0-10 Automated blood basophils/100 leukocytes 0 % 0-10 Blood neutrophils automated count (number/volume) 10.2 10*3 1.8-7.8 Blood lymphocytes automated count (number/volume) 0.6 10*3 1.0-4.0 Blood monocytes automated count (number/volume) 0. 2 10*3 0.0-1.0 Automated eosinophil count 0.0 10*3/uL 0 .0-0.3 Automated blood basophil count (count/volume) 0.0 10*3/uL 0.0-0.1 PT panel in platelet poor plasma by coag ulation assay - 02/07/20 20:25 Prothrombin time (PT) in platelet poor plasma by coagu lation assay 13.4 s 12.2-14.7 INR in platelet poor plasma or blood by coagulation as say 1.0 0.8-1.4 Activated partial thromboplastin time (a PTT) in platelet poor plasma bycoagulation assay - 02/07/20 20:25 Activated partial thromboplastin time (a PTT) in platelet poor plasma bycoagulation assay 27 s 24-35 Fibrin D-dimer FEU measurement in platel et poor plasma (mass/volume) - 02/07/20 20:25 Fibrin D-dimer FEU measurement in platelet poor plasma (mass/volume) 0.28 ug/mL 0.00-0.49 Blood lactic acid measurement (moles/vol ume) - 02/07/20 20:25 Blood lactic acid measurement (moles/volume) 3.88 mmol/L 0.50-2.00 Comprehensive metabolic panel - 02/07/20 20:25 Serum or plasma sodium measurement (moles/volume) 136 mmol/L 135-145 Serum or plasma potassium measurement (moles/volume) 4.1 mmol/L 3.6-5.0 Serum or plasma chloride measurement (moles/volume) 104 mmol/L 98-107 Carbon dioxide 21 mmol/L 21-32 Serum or plasma anion gap determination (moles/volume) 11 mmol/L 5-14 Serum or plasma urea nitrogen measurement (mass/volume ) 9 mg/dL 7-18 Serum or plasma creatinine measurement (mass/volume) 0.84 mg/dL 0.60-1.30 Serum or plasma urea nitrogen/creatinine mass ratio 11 NRG Serum or plasma creatinine measurement w ith calculation of estimated glomerular filtration rate > NRG Serum or plasma glucose measurement (mass/volume) 118 mg/dL 70-105 Serum or plasma calcium measurement (mass/volume) 9.1 mg/dL 8.5-10.1 Serum or plasma total bilirubin measurement (mass/volu me) 0.2 mg/dL 0.1-1.0 Serum or plasma alkaline phosphatase oriana surement (enzymatic activity/volume) 56 U/L 40-136 Serum or plasma aspartate aminotransfera se measurement (enzymatic activity/volume) 14 U/L 5-34 Serum or plasma alanine aminotransferase measurement (enzymatic activity/volume) 14 U/L 0-55 Serum or plasma protein measurement (mass/volume) 6.9 g/dL 6.4-8.2 Serum or plasma albumin measurement (mass/volume) 4.0 g/dL 3.2-4.5 CALCIUM CORRECTED 9.1 mg/dL 8.5-10.1 Serum ragweed IgE antibody assay - 02/06 20:25 Serum ragweed IgE antibody assay 167 U/L 125-220 PROCALCITONIN (PCT) - 02/07/20 20:25 PROCALCITONIN (PCT) 0.04 ng/mL <0.10 Manual absolute plasma cell count - 01/21 05/11 20:25 Blood monocytes/100 leukocytes 1 % NRG Manual blood segmented neutrophils/100 leukocytes 93 % NRG Manual blood lymphocytes/100 leukocytes 6 % NRG Blood erythrocyte morphology finding identification NORMAL NRG Erythrocyte sedimentation rate by amairani gren method - 02/07/20 20:25 Erythrocyte sedimentation rate by westergren method 10 mm 0- 20 Serum or plasma C reactive protein measu rement (mass/volume) - 02/07/20 20:25 Serum or plasma C reactive protein measurement (mass/v olume) 1.67 mg/dL 0.00-0.50 Encounters ACCT No. Visit Date/Time Discharge Status Pt. Type Provider Facility Loc./Unit Complaint [id number] 01/15/2019 11:08:00 01/17/2019 08:02: 00 DIS Inpatient [facility] [id number] 01/15/2019 11:49:41 Document Registration [id number] 04/25/2019 05:11:00 06:09:00 DIS Emergency KEIRA ELDER, SHAKEEL Isabel [facility] ER FS ASTHMA ATTACK [id number] 01/29/2019 09:38:00 11:34:00 DIS Emergency ANTHONY ERNST MD [facility] ER FS SOB; CHEST PAIN [id number] 01/15/2019 11:30:00 23:59:59 CLS Outpatient YENNY VEGA DO [facility] LABNPT [id number] 02/07/2020 22:00:[address] Inpatient YENNY VEGA DO [facility] PNEUMONIA [id number] 02/07/2020 15:13:[address] Outpatient Aidan'SASCHA GIBSB APRN [facility] LAB FS SOB,ACUTE MIDLINE THORACIC B ACK PAIN [id number] 02/07/2020 13:01:[address] Outpatient SASCHA ENNIS APRN [facility] RAD FS R06.02 M54.6 [id number] 11/16/2019 16:50:00 11/16/2019 23:59:5 9 CLS Outpatient LISSET OLIVEROS [facility] [id number] 07/02/2019 14:45:00 Document Registration [id number] 01/20/2011 16:39:00 01/20/2011 23:59: 59 CLS Outpatient CAITY GONZALES [facility]
[2020-02-07] MEDS ORDERED: ONDANSETRON 4 MG/2 ML (SDV) Z0FRAN IV PRN (23:00)
[2020-02-07] MEDS ORDERED: NOREPINEPHRINE 4 MG/250 ML 250 ML IV SCH (23:01)
[2020-02-07] MEDS ORDERED: VASOPRESSIN INJECTION 20 UNIT in NORMAL SALINE 100 ML IV SCH (23:01)
[2020-02-07] MEDS: LACTATED RINGERS 1,000 ML IV SCH (23:15)
[2020-02-07] MEDS ORDERED: EPINEPHrine 1 MG INJECTION 2 MG in NS (IVPB) 250 ML IV SCH (23:15)
[2020-02-07] MEDS ORDERED: MELATONIN 3 MG TABLET ONE (23:35)
[2020-02-07] MEDS ORDERED: NS (IVPB) 250 ML ONE (23:36)
[2020-02-07] MEDS ORDERED: AZITHROMYCIN 500 MG (ZITHROMAX) VIAL ONE (23:36)
[2020-02-07] MEDS: ACETAMINOPHEN 325 MG TABLET PO PRN (23:57)
[2020-02-07] MEDS: AZITHROMYCIN INJECTION 500 MG in NS (IVPB) 250 ML IV SCH (23:57)
[2020-02-07] MEDS: MELATONIN 3 MG TABLET PO PRN (23:59)
[2020-02-08] VITALS (14 sets, daily range): BP systolic 90–116; BP diastolic 41–69
[2020-02-08 04:12] LABS: BASOPHILS % (AUTO) 0 % (0-10); EOSINOPHILS % (AUTO) 0 % (0-10); HEMATOCRIT 36 % (35-52); HEMOGLOBIN 12.1 G/DL (11.5-16.0); LYMPHOCYTES # (AUTO) 1.3 X 10^3 (1.0-4.0); LYMPHOCYTES % (AUTO) 13 % (12-44); MEAN CORPUSCULAR HEMOGLOBIN 32 PG (25-34); MEAN CORPUSCULAR HGB CONC 34 G/DL (32-36); MEAN CORPUSCULAR VOLUME 93 FL (80-99); MEAN PLATELET VOLUME 11.6 FL (7.4-10.4); MONOCYTES % (AUTO) 9 % (0-12); NEUTROPHILS # (AUTO) 8.3 X 10^3 (1.8-7.8); NEUTROPHILS % (AUTO) 78 % (42-75); PLATELET COUNT 158 10^3/uL (130-400); WHITE BLOOD COUNT 10.6 10^3/uL (4.3-11.0)
[2020-02-08 04:26] LABS: ALANINE AMINOTRANSFERASE 12 U/L (0-55); ALBUMIN 3.2 GM/DL (3.2-4.5); ALKALINE PHOSPHATASE 55 U/L (40-136); BILIRUBIN,TOTAL 0.1 MG/DL (0.1-1.0); BUN/CREATININE RATIO 12; CARBON DIOXIDE 19 MMOL/L (21-32); CHLORIDE 111 MMOL/L (98-107); CREATININE SERUM 0.68 MG/DL (0.60-1.30); GFR ESTIMATED > 60; GLUCOSE 129 MG/DL (70-105); MAGNESIUM 1.6 MG/DL (1.6-2.4); PHOSPHORUS 3.1 MG/DL (2.3-4.7); POTASSIUM 3.7 MMOL/L (3.6-5.0); SODIUM 139 MMOL/L (135-145); TOTAL PROTEIN 5.5 GM/DL (6.4-8.2)
[2020-02-08] MEDS ORDERED: RT-ALBUTEROL/IPRATROPIUM 3 ML (DUONEB) VIAL INH PRN (05:15)
--- NOTE | 2020-02-08 05:17 | Pulmonary Consultation ---
History of Present Illness History of Present Illness Date Seen by Provider: Feb 08, 2020 Time Seen by Provider: 05:16 Date of Admission Allergies and Home Medications Allergies Coded Allergies: divalproex sodium (Verified Adverse Reaction, Unknown, hallucinations, 01/29/19) Home Medications Fluticasone/Salmeterol 1 Each Blst.w.dev, 1 EACH IH BID Prescribed by: ANTHONY ERNST on 01/29/19 111 Naproxen 500 Mg Tablet, 500 MG PO BID Prescribed by: ANTHONY ERNST on 01/29/19 1117 Past Kjyzres-Mjjegv-Pshhwz Hx Past Med/Social Hx: Reviewed Nursing Past Med/Soc Hx Patient Social History Alcohol Use: Denies Use Recreational Drug Use: No Smoking Status: Current Everyday Smoker Type Used: Cigarettes 2nd Hand Smoke Exposure: Yes Recent Foreign Travel: No Contact w/Someone Who Travel: No Recent Infectious Disease Expo: No Recent Hopitalizations: No Physical Abuse: No Sexual Abuse: No Mistreated: No Fear: No Immunizations Up To Date Tetanus Booster (TDap): Unknown Seasonal Allergies Seasonal Allergies: No Past Medical History Surgeries: Yes Section Respiratory: Yes Asthma Cardiac: No Neurological: No : No (implant) Genitourinary: No Gastrointestinal: No Musculoskeletal: No Endocrine: No HEENT: No Cancer: No Psychosocial: No Integumentary: No Blood Disorders: No Family Medical History Reviewed Nursing Family Hx Sepsis Event Evaluation Height, Weight, BMI Height: 5'5.00" Weight: 135lbs. oz. 61.073156ex; 21.89 BMI Method:Stated Exam Exam Vital Signs Date Time Temp Pulse Resp B/P (MAP) Pulse Ox O2 Delivery O2 Flow Rate FiO2 02/08/20 04:56 68 96 02/08/20 04:00 96 Room Air 02/08/20 03:00 87 15 91/48 (62) 97 Room Air 02/08/20 02:00 88 21 90/41 (57) 95 Room Air 02/08/20 01:30 93 19 94/57 (69) 96 Room Air 02/08/20 01:00 99 02/08/20 01:00 101 13 100/57 (71) 97 Room Air 02/08/20 00:00 98 Room Air 02/08/20 00:00 76 12 100/68 (79) 97 Room Air 02/07/20 23:45 80 14 104/62 (76) 96 Room Air 02/07/20 23:30 82 17 112/68 (83) 96 Room Air 02/07/20 23:15 78 16 106/69 (81) 96 Room Air 02/07/20 23:10 37.0 87 15 102/68 98 Room Air 02/07/20 23:10 97 Room Air 02/07/20 23:00 87 15 102/68 (79) 98 Room Air 02/07/20 22:57 37.0 75 18 108/68 (81) 99 Room Air 02/07/20 22:56 76 02/07/20 22:19 37.1 82 16 111/76 99 Room Air 02/07/20 22:00 77 18 117/82 (94) 98 Room Air 02/07/20 21:00 78 16 113/70 (84) 99 Room Air 02/07/20 20:13 36.8 90 16 113/77 (89) Room Air I & O 02/08/20 07:00 Intake Total 2009 ml Balance 2009 ml Height & Weight Height: 5'5.00" Weight: 135lbs. oz. 61.961069by; 21.89 BMI Method:Stated General Appearance: No Apparent Distress, WD/WN HEENT: PERRL/EOMI, Pharynx Normal Neck: Non Tender, Supple Respiratory: Lungs Clear, Normal Breath Sounds Cardiovascular: Regular Rate, Rhythm, No Murmur Capillary Refill: Less Than 3 Seconds Extremity: Normal Range of Motion, Non Tender Neurologic/Psychiatric: Alert, Oriented x3 Results Lab Laboratory Tests 02/07/20 20:25 02/08/20 03:02 Assessment/Plan Assessment/Plan RUL pneumonia -Continue Abx -Orta culture -Check preg test Asthma -Start duoneb with pulmicort -IVF -OSMEL Tse DO Feb 08, 2020 05:17
[2020-02-08] MEDS: MAGNESIUM 1 GM/100 ML IVPB 100 ML IV SCH ×3 (06:03→08:50)
[2020-02-08] MEDS: methylPREDNISolone 40 MG/ML (Solu-MEDROL) VIAL IV SCH ×4 (06:03→23:34)
[2020-02-08] MEDS: LACTATED RINGERS 1,000 ML IV SCH ×2 (06:57→12:32)
[2020-02-08] MEDS ORDERED: predniSONE 20 MG TAB PO SCH (07:00)
[2020-02-08] MEDS: RT-BUDESONIDE NEBS 0.5 MG/2ML (PULMICORT) AMP INH SCH ×2 (07:11→19:25)
--- NOTE | 2020-02-08 07:11 | NUR ---
DR. DRIVER TO ORDER VTE AND GI PROPHYLAXIS AFTER TEST COMPLETE; DOCTOR VILLA WOULD LIKE TO BE NOTIFIED OF RESULTS. THIS INFORMATION PASSED ON TO ONCOMING SHIFT.
[2020-02-08] MEDS: RT-ALBUTEROL/IPRATROPIUM 3 ML (DUONEB) VIAL INH SCH ×5 (07:12→22:22)
[2020-02-08] MEDS ORDERED: RT-ALBUTEROL/IPRATROPIUM 3 ML (DUONEB) VIAL INH ONE (08:00)
--- NOTE | 2020-02-08 08:11 | Diagnostic Imaging Report ---
INDICATION: Right upper lobe pneumonia. Time of exam: 3:11 AM Correlation is made with prior chest from one day earlier. Worsening right upper lobe consolidation and collapse is noted. Fissure is deviated cephalad. Left lung is clear. There is no effusion or pneumothorax. IMPRESSION: Worsening right upper lobe collapse and consolidation when compared with study one day earlier. Dictated by: Dictated on workstation # [id number]
[2020-02-08 08:30] LABS: AMPHETAMINE SCREEN, URINE NEGATIVE (NEGATIVE); BENZODIAZEPINES SCREEN URINE POSITIVE (NEGATIVE); COCAINE SCREEN URINE NEGATIVE (NEGATIVE); METHAMPHETAMINE SCREEN URINE S NEGATIVE (NEGATIVE)
[2020-02-08 08:31] LABS: BARBITURATE SCREEN URINE NEGATIVE (NEGATIVE); CANNABINOID SCREEN, URINE POSITIVE (NEGATIVE); METHADONE STAT NEGATIVE (NEGATIVE); OPIATE SCREEN URINE NEGATIVE (NEGATIVE); OXYCODONE STAT POSITIVE (NEGATIVE); PROPOXYPHENE STAT NEGATIVE (NEGATIVE); TRICYCLIC ANTIDEPRESSANTS SCRE NEGATIVE (NEGATIVE)
--- NOTE | 2020-02-08 08:35 | NUR ---
0811-THIS NURSE CLARIFIED WITH DR DRIVER HE WOULD LIKE A URINE TEST ORDERED. THIS NURSE NOTIFIED LAB. URINE SENT DOWN. 0835- THIS NURSE NOTIFIED DR DRIVER PT TEST CAME BACK NEGATIVE. NO NEW ORDERS AT TIME. NOTIFIED SHARI CLEMONS, WHO IS TAKING OVER PT.
--- NOTE | 2020-02-08 08:40 | NUR ---
THIS NURSE CALLED REPORT TO SHARI CLEMONS ON FOURTH FLOOR. PT TAKEN TO FOURTH FLOOR VIA WHEELCHAIR WITH BELONGINGS.
[2020-02-08] MEDS: NICOTINE 21 MG (NICODERM) PATCH TD SCH (09:47)
--- NOTE | 2020-02-08 12:30 | History & Physical-Hospitalist ---
History of Present Illness HPI/Chief Complaint CC: RUL PNA with asthma and ground glass appearance on CXR HPI: This is a 24yoWF of [facility] who was tested negative for COVID-19 who has asthma who continued to worsen and was admitted to [facility] for IV abx and IV steroids and Dr Dsouza consultation. Patient is trying to quit smoking and has a nicotine patch on. She feels very anxious about being in the hospital away from her 2 kids 6 and 3 and nicotine withdrawal. Xanax will be given short term to help her through this difficult time. Patient denies cough. No pain. Source: patient Date Seen 02/08/20 Time Seen by a Provider: 12:45 Attending Physician Yenny Coyne Pankaj K MD Referring Physician Date of Admission Feb 07, 2020 at 22:00 Home Medications & Allergies Home Medications Reviewed patient Home Medication Reconciliation performed by pharmacy medication reconciliations hvac technician and/or nursing. Patients Allergies have been reviewed. Allergies Allergies Coded Allergies divalproex sodium (Verified Adverse Reaction, Unknown, hallucinations, 01/29/19) Past Jyxbxjl-Vzsjtn-Ahiumt Hx Past Med/Social Hx: Reviewed Nursing Past Med/Soc Hx, Reviewed and Corrections made Patient Social History Marrital Status: cohabiting (engaged) Alcohol Use: Denies Use Recreational Drug Use: No Smoking Status: Current Everyday Smoker Type Used: Cigarettes 2nd Hand Smoke Exposure: Yes Recent Foreign Travel: No Contact w/other who traveled: No Recent Hopitalizations: No Recent Infectious Disease Expo: No Immunizations Up To Date Tetanus Booster (TDap): Unknown Seasonal Allergies Seasonal Allergies: No Past Medical History Surgeries: Section Respiratory: Asthma : No (implant) History of Blood Disorders: No Family History Reviewed Nursing Family Hx Review of Systems Constitutional: see HPI Respiratory: cough, dyspnea on exertion, short of breath, wheezing Physical Exam Physical Exam Vital Signs Vital Signs - First Documented 02/07/20 02/07/20 20:13 21:00 Temp 36.8 Pulse 90 Resp 16 B/P (MAP) 113/77 (89) Pulse Ox 99 O2 Delivery Room Air Capillary Refill : Less Than 3 Seconds Height, Weight, BMI Height: 5'5.00" Weight: 135lbs. oz. 61.603201bs; 21.89 BMI Method:Stated General Appearance: No Apparent Distress Eyes: Right Eye Normal Inspection, Right Eye PERRL HEENT: PERRL/EOMI, TMs Normal, Normal ENT Inspection, Pharynx Normal, Moist Mucous Membranes Neck: Full Range of Motion, Normal Inspection, Non Tender Respiratory: Chest Non Tender, Lungs Clear, No Accessory Muscle Use, No Respiratory Distress, Crackles Cardiovascular: Regular Rate, Rhythm, No Edema, No Gallop, No JVD, No Murmur, Normal Peripheral Pulses Gastrointestinal: Normal Bowel Sounds, No Organomegaly, No Pulsatile Mass, Non Tender, Soft Back: Normal Inspection, No CVA Tenderness, No Vertebral Tenderness Extremity: Normal Capillary Refill, Normal Inspection, Normal Range of Motion, Non Tender, No Calf Tenderness, No Pedal Edema Neurologic/Psychiatric: Alert, Oriented x3, No Motor/Sensory Deficits, Normal Mood/Affect Skin: Normal Color, Warm/Dry Lymphatic: No Adenopathy Results Results/Procedures Labs Laboratory Tests 02/07/20 20:25 02/08/20 03:02 Patient resulted labs reviewed. Assessment/Plan Admission Diagnosis Assessment: PNA failed PO abx outpatient COVID tested and is negative Smoker Asthma Anxiety Plan: IV abx and steroids Xanax Nicotine patch Appreciate Dr Dsouza Admission Status: Inpatient Order (span 2 midnights) Reason for Inpatient Admission: PNA failed PO abx Diagnosis/Problems Diagnosis/Problems (1) Right upper lobe pneumonia Status: Acute Qualifiers: Pneumonia type: due to unspecified organism Qualified Codes: J18.1 - Lobar pneumonia, unspecified organism (2) Asthma Status: Acute Qualifiers: Asthma severity: unspecified severity Asthma persistence: unspecified Asthma complication type: with acute exacerbation Qualified Codes: J45.901 - Unspecified asthma with (acute) exacerbation Clinical Quality Measures DVT/VTE Risk/Contraindication: Risk Factor Score Per Nursin RFS Level Per Nursing on Admit: 4+=Very High YENNY COYNE DO Feb 08, 2020 12:30
[2020-02-08] MEDS ORDERED: ALPRAZolam 0.25 MG (XANAX) TAB PO PRN (13:45)
[2020-02-08] MEDS ORDERED: ALPRAZolam 0.25 MG (XANAX) TAB PO ONE (13:45)
[2020-02-08] MEDS ORDERED: ENOXAPARIN 40 MG/0.4 ML (LOVENOX) SYR SC SCH (13:45)
[2020-02-08] MEDS: ACETAMINOPHEN 325 MG TABLET PO PRN (17:54)
[2020-02-08] MEDS ORDERED: WATER (STERILE) FOR INJECTION 10 ML ONE (20:48)
[2020-02-08] MEDS ORDERED: cefTRIAXone 1,000 MG IV (ROCEPHIN) VIAL ONE (20:48)
[2020-02-08] MEDS ORDERED: cefTRIAXone FOR IV USE 1,000 MG in WATER (STERILE) FOR INJECTION 10 ML IV SCH (21:00)
[2020-02-08] MEDS: MELATONIN 3 MG TABLET PO PRN (21:01)
[2020-02-08] MEDS: AZITHROMYCIN INJECTION 500 MG in NS (IVPB) 250 ML IV SCH (23:35)
[2020-02-09 00:52] VITALS: BP 135/71
[2020-02-09] MEDS: RT-ALBUTEROL/IPRATROPIUM 3 ML (DUONEB) VIAL INH SCH ×3 (02:32→10:34)
[2020-02-09 04:00] VITALS: BP 109/66
[2020-02-09] MEDS: ACETAMINOPHEN 325 MG TABLET PO PRN (05:36)
[2020-02-09] MEDS: methylPREDNISolone 40 MG/ML (Solu-MEDROL) VIAL IV SCH (05:36)
[2020-02-09 05:45] LABS: BASOPHILS % (AUTO) 0 % (0-10); EOSINOPHILS % (AUTO) 0 % (0-10); HEMATOCRIT 36 % (35-52); HEMOGLOBIN 12.3 G/DL (11.5-16.0); LYMPHOCYTES # (AUTO) 0.9 X 10^3 (1.0-4.0); LYMPHOCYTES % (AUTO) 7 % (12-44); MEAN CORPUSCULAR HEMOGLOBIN 32 PG (25-34); MEAN CORPUSCULAR HGB CONC 34 G/DL (32-36); MEAN CORPUSCULAR VOLUME 94 FL (80-99); MEAN PLATELET VOLUME 11.2 FL (7.4-10.4); MONOCYTES # (AUTO) 0.4 X 10^3 (0.0-1.0); MONOCYTES % (AUTO) 3 % (0-12); NEUTROPHILS # (AUTO) 11.3 X 10^3 (1.8-7.8); NEUTROPHILS % (AUTO) 90 % (42-75); PLATELET COUNT 153 10^3/uL (130-400); RED CELL DISTRIBUTION WIDTH 13.2 % (10.0-14.5); WHITE BLOOD COUNT 12.5 10^3/uL (4.3-11.0)
[2020-02-09 06:02] LABS: CHLORIDE 113 MMOL/L (98-107); POTASSIUM 4.1 MMOL/L (3.6-5.0); SODIUM 141 MMOL/L (135-145)
[2020-02-09 06:03] LABS: CALCIUM 8.3 MG/DL (8.5-10.1)
[2020-02-09 06:04] LABS: GLUCOSE 125 MG/DL (70-105)
[2020-02-09 06:05] LABS: CARBON DIOXIDE 18 MMOL/L (21-32)
[2020-02-09 06:07] LABS: PHOSPHORUS 4.4 MG/DL (2.3-4.7)
[2020-02-09 06:08] LABS: BUN/CREATININE RATIO 16; CREATININE SERUM 0.67 MG/DL (0.60-1.30); GFR ESTIMATED > 60
[2020-02-09 06:10] LABS: MAGNESIUM 1.9 MG/DL (1.6-2.4)
[2020-02-09] MEDS ORDERED: AUGMENTIN 500 MG TAB (AMOXICILLIN/CLAVULANATE) PO SCH (07:00)
--- NOTE | 2020-02-09 07:03 | Pulmonary Progress Note ---
Subjective Time Seen by a Provider: 06:57 Subjective/Events-last exam PT is doing better. Sepsis Event Evaluation Height, Weight, BMI Height: 5'5.00" Weight: 135lbs. oz. 61.917589kl; 21.89 BMI Method:Stated Focused Exam Lactate Level 02/07/20 20:25: Lactic Acid Level 3.88*H 02/07/20 22:18: Lactic Acid Level 2.59*H 02/08/20 01:01: Lactic Acid Level 1.68 Exam Exam Vital Signs Date Time Temp Pulse Resp B/P (MAP) Pulse Ox O2 Delivery O2 Flow Rate FiO2 02/09/20 04:00 37.3 88 18 109/66 (80) 95 Room Air 02/09/20 00:52 37.6 102 20 135/71 (92) 97 Room Air 02/08/20 22:23 98 Room Air 02/08/20 20:59 Room Air 02/08/20 19:45 37.6 90 18 111/68 (82) 99 Room Air 02/08/20 19:26 99 Room Air 02/08/20 16:00 37.5 94 18 106/55 (72) 97 Room Air 02/08/20 14:08 98 Room Air 02/08/20 12:11 98 02/08/20 12:00 37.3 88 18 99/63 (75) 97 Room Air 02/08/20 10:48 97 Room Air 02/08/20 09:45 36.7 55 18 116/69 (85) 98 Room Air 02/08/20 09:23 97 Room Air 02/08/20 08:19 97 Room Air 02/08/20 08:11 36.6 02/08/20 08:00 97 Room Air 02/08/20 08:00 91 19 97/56 (70) 97 Room Air 02/08/20 07:12 97 Room Air 02/08/20 07:00 102 I & O 02/09/20 07:00 Intake Total 3440 ml Output Total 500 ml Balance 2940 ml Height & Weight Height: 5'5.00" Weight: 135lbs. oz. 61.329012qn; 21.89 BMI Method:Stated General Appearance: No Apparent Distress HEENT: PERRL/EOMI, TMs Normal, Normal ENT Inspection, Pharynx Normal, Moist Mucous Membranes Neck: Full Range of Motion, Normal Inspection, Non Tender Respiratory: Chest Non Tender, Lungs Clear, No Accessory Muscle Use, No Respiratory Distress, Crackles Cardiovascular: Regular Rate, Rhythm, No Edema, No Gallop, No JVD, No Murmur, Normal Peripheral Pulses Capillary Refill: Less Than 3 Seconds Extremity: Normal Capillary Refill, Normal Inspection, Normal Range of Motion, Non Tender, No Calf Tenderness, No Pedal Edema Neurologic/Psychiatric: Alert, Oriented x3, No Motor/Sensory Deficits, Normal Mood/Affect Skin: Normal Color, Warm/Dry Lymphatic: No Adenopathy Results Lab Laboratory Tests 02/07/20 20:25 02/08/20 03:02 02/09/20 05:04 Assessment/Plan Assessment/Plan RUL pneumonia -Change to Augmentin x total of 7 days and azithromycin PO for total 5days -CXR is much improved -Orta culture neg -She is only on RA -Check preg test Asthma -Continue duoneb with pulmicort -Upon discharge change to albuterol INH and Advair. -Change solumedrol to prednisone taper. -IVF Tobacco use -Education Marijuanna use -Education OK for discharge from pulmonary standpoint. OSMEL DRIVER DO Feb 09, 2020 07:03
[2020-02-09] MEDS: RT-BUDESONIDE NEBS 0.5 MG/2ML (PULMICORT) AMP INH SCH (07:05)
[2020-02-09 07:20] VITALS: BP 107/62
--- NOTE | 2020-02-09 08:36 | Diagnostic Imaging Report ---
INDICATION: Pneumonia. Time of exam 2:47 AM Correlation is made with prior chest one earlier. There has been significant improved aeration to the right upper lobe since yesterday. Right upper lobe collapse is nearly completely resolved. There is only minimal linear atelectasis in the right upper lobe. Otherwise lungs are clear. No effusion or pneumothorax is seen. IMPRESSION: Significantly improved aeration in the right upper lobe when compared to examination one day earlier. Dictated by: Dictated on workstation # [id number]
[2020-02-09] MEDS: NICOTINE 21 MG (NICODERM) PATCH TD SCH (08:48)
[2020-02-09] MEDS ORDERED: AZITHROMYCIN 250 MG TAB (ZITHROMAX) PO SCH (09:00)
[2020-02-09] MEDS ORDERED: predniSONE 10 MG TAB PO SCH (09:00)
[2020-02-09] MEDS ORDERED: PATCH REMOVAL TP SCH (09:00)
[2020-02-09] MEDS ORDERED: PRED10TA22 PO ×2 (11:25)
[2020-02-09] MEDS ORDERED: AMOX1TAB11 PO ×2 (11:25)
[2020-02-09] MEDS ORDERED: RT-ALBUINH IH ×2 (11:25)
[2020-02-09] MEDS ORDERED: AZIT250T12 PO ×2 (11:25)
--- NOTE | 2020-02-09 11:25 | Discharge Summary ---
Discharge Summary Hospital Course Was the Problem List Reviewed?: Yes Problems/Dx: (1) Right upper lobe pneumonia Status: Acute Qualifiers: Qualified Codes: J18.1 - Lobar pneumonia, unspecified organism (2) Asthma Status: Acute Qualifiers: Qualified Codes: J45.901 - Unspecified asthma with (acute) exacerbation Hospital Course Date of Admission: Feb 07, 2020 at 22:00 Admission Diagnosis : Family Physician/Provider: Omer Messer MD Date of Discharge: 02/09/20 Discharge Diagnosis: right upper lobe PNA COVID negative, asthma with exacerbation, smoker, anxiety Hospital Course: Brief course after admitted for IV abx and steroids and Nebs since failed PO abx. Smoking cessation counseled. Dr Dsouza consulted. Patient remained stable and improved enough to DC home. Labs and Pending Lab Test: Laboratory Tests 02/09/20 05:04: White Blood Count 12.5H, Red Blood Count 3.88L, Hemoglobin 12.3, Hematocrit 36, Mean Corpuscular Volume 94, Mean Corpuscular Hemoglobin 32, Mean Corpuscular Hemoglobin Concent 34, Red Cell Distribution Width 13.2, Platelet Count 153, Mean Platelet Volume 11.2H, Neutrophils (%) (Auto) 90H, Lymphocytes (%) (Auto) 7L, Monocytes (%) (Auto) 3, Eosinophils (%) (Auto) 0, Basophils (%) (Auto) 0, Neutrophils # (Auto) 11.3H, Lymphocytes # (Auto) 0.9L, Monocytes # (Auto) 0.4, Eosinophils # (Auto) 0.0, Basophils # (Auto) 0.0, Sodium Level 141, Potassium Level 4.1, Chloride Level 113H, Carbon Dioxide Level 18L, Anion Gap 10, Blood Urea Nitrogen 11, Creatinine 0.67, Estimat Glomerular Filtration Rate > 60, BUN/Creatinine Ratio 16, Glucose Level 125H, Calcium Level 8.3L, Phosphorus Level 4.4, Magnesium Level 1.9 Microbiology 02/07/20 Blood Culture - Preliminary, Resulted No growth 02/07/20 Urine Culture - Final, Complete NO GROWTH Home Meds Active Proair Hfa (Albuterol Sulfate) 1 Puff Puff 2 Puff IH Q4H 1 PUFF = 90 MCG Prednisone 10 Mg Tab.ds.pk 10 Mg PO DAILY Take 6 tabs(60mg)daily,decrease by 1 tab(10MG)daily. Azithromycin 250 Mg Tablet 250 Mg PO DAILY Amox Tr-K Clv 500-125 mg Tab (Amoxicillin/Potassium Clav) 1 Each Tablet 500 Mg PO BID WITH MEALS Naprosyn (Naproxen) 500 Mg Tablet 500 Mg PO BID 14 Days Advair 250-50 Diskus (Fluticasone/Salmeterol) 1 Each Blst.w.dev 1 Each IH BID 30 Days Reported [Ipratropium/] Iprat-Albut 0.5-3(2.5) mg/3 ml (Ipratropium/Albuterol Sulfate) 3 Ml Ampul.neb Levofloxacin 500 Mg Tablet Prednisone 10 Mg Tab Assessment/Pt Instructions [facility] PCP this week Discharge Planning: <30 minutes discharge planning Discharge Instructions Discharge Diet: No Restrictions Discharge Physical Examination Vital Signs Vital Signs Date Time Temp Pulse Resp B/P (MAP) Pulse Ox O2 Delivery O2 Flow Rate FiO2 02/09/20 10:34 98 Room Air 02/09/20 07:20 37.3 90 18 107/62 (77) General Appearance: No Apparent Distress, WD/WN Respiratory: Lungs Clear Cardiovascular: Regular Rate, Rhythm Neurologic/Psychiatric: Alert, Oriented x3, No Motor/Sensory Deficits, Normal Mood/Affect Allergies: Coded Allergies: divalproex sodium (Verified Adverse Reaction, Unknown, hallucinations, 01/29/19) Discharge Summary Date of Admission Feb 07, 2020 at 22:00 Date of Discharge Discharge Date: Feb 09, 2020 Admission Diagnosis Assessment: PNA failed PO abx outpatient COVID tested and is negative Smoker Asthma Anxiety Plan: IV abx and steroids Xanax Nicotine patch Appreciate Dr Dsouza Discharge Diagnosis (1) Right upper lobe pneumonia Status: Acute Qualifiers: Qualified Codes: J18.1 - Lobar pneumonia, unspecified organism (2) Asthma Status: Acute Qualifiers: Qualified Codes: J45.901 - Unspecified asthma with (acute) exacerbation Clinical Quality Measures DVT/VTE Risk/Contraindication: Risk Factor Score Per Nursin RFS Level Per Nursing on Admit: 4+=Very High CASSIE VEGA DO Feb 09, 2020 11:25
[2020-02-09 12:35] VITALS: BP 107/62
== END 2020-02-09 12:35 | disposition home or self-care (01) | DRG 194 ==
LOC: EDUNIT# 19:57 → ER 19:59 → ICU 22:00 → 4TH 02-08 08:45
PROVIDERS: ADMIT Internal Medicine; ATTEND Internal Medicine
DX: J18.9 Pneumonia, unspecified organism (principal); J45.901 Unspecified asthma with (acute) exacerbation; F41.9 Anxiety disorder, unspecified; F17.210 Nicotine dependence, cigarettes, uncomplicated; F12.90 Cannabis use, unspecified, uncomplicated
CPT/HCPCS: 36415; 71045; 80048; 80053; 80306; 81000; 83605; 83615; 83735; 84100; 84145; 84703; 85007; 85025; 85027; 85379; 85610; 85652; 85730; 86141; 87040; 87088; 87449; 87899; 94640; 94664

== ENCOUNTER → 2020-02-07 | Outpatient (CLI) | payer MEDICAID ==
[~2020-02-07] MED LIST changes: +AMOX1TAB11 PO; +AZIT250T12 PO; +CATHETER FLUSH 10 ML SYR IV PRN; +HOLD METFORMIN - RECEIVED CONTRAST 20 ML VIAL IV SCH; +IOHEXOL 350 MG/ML 150 ML (OMNIPAQUE 350) VIAL IV ONE; +IPRA3AMP31; +IPRATROPIUM/; +LEVO500T80; +NS 100 ML (IVPB) BAG IV ONE; +PRD10T; +PRED10TA22 PO; +RT-ALBUINH IH
--- NOTE | 2020-02-07 16:10 | Diagnostic Imaging Report ---
PROCEDURE: CT angiography of the chest with contrast. TECHNIQUE: Multiple contiguous axial images were obtained through the chest after uneventful bolus administration of intravenous contrast. 3D reconstructed CTA MIP acquisitions were also performed. Auto Exposure Controls were utilized during the CT exam to meet ALARA standards for radiation dose reduction. INDICATION: Shortness of breath, abnormal chest x-ray. COMPARISON: February 07, 2020. FINDINGS: No significant adenopathy within the chest. No aneurysmal dilatation of the thoracic aorta. The heart is within normal limits in size. No significant pericardial effusion. Minimal density within the anterior mediastinum is felt to relate to residual thymic tissue. No pleural effusion. No pneumothorax. Mild lingular reticular opacities. Otherwise, the left lung is clear. Dense opacities with associated extensive volume loss is noted within the right upper lobe with adjacent groundglass opacities within the aerated right upper lobe. There does appear to be narrowing and near obstruction of the right upper lobe bronchus with internal densities present without definite obstructing extrinsic mass lesion. There is resulting volume loss with rightward shift of the trachea. No significant filling defect within the central or segmental pulmonary arteries. The visualized upper abdomen is unremarkable. No acute osseous abnormality. IMPRESSION: Extensive consolidation and volume loss within the right upper lobe. This may be on the basis of mucous plugging as no definite extrinsic mass lesion is seen to account for the narrowing and obstruction of the right upper lobe bronchus. However, radiographic follow-up is recommended in 7-10 days to ensure resolution. If this does not resolve over the next one to two weeks, then bronchoscopic evaluation should be considered. Minimal lingular atelectasis and/or pneumonitis. No significant pulmonary embolus. Dictated by: Dictated on workstation # [id number]
[2020-02-07 16:14] LABS: HEMATOCRIT 43 % (35-52); HEMOGLOBIN 14.6 G/DL (11.5-16.0); MEAN CORPUSCULAR HEMOGLOBIN 31 PG (25-34); MEAN CORPUSCULAR HGB CONC 34 G/DL (32-36); MEAN CORPUSCULAR VOLUME 93 FL (80-99); WHITE BLOOD COUNT 15.6 10^3/uL (4.3-11.0)
[2020-02-07 16:15] LABS: BASOPHILS % (AUTO) 0 % (0-10); EOSINOPHILS % (AUTO) 0 % (0-10); LYMPHOCYTES # (AUTO) 0.6 X 10^3 (1.0-4.0); LYMPHOCYTES % (AUTO) 4 % (12-44); MEAN PLATELET VOLUME 11.4 FL (7.4-10.4); MONOCYTES # (AUTO) 0.2 X 10^3 (0.0-1.0); MONOCYTES % (AUTO) 1 % (0-12); NEUTROPHILS # (AUTO) 14.8 X 10^3 (1.8-7.8); NEUTROPHILS % (AUTO) 95 % (42-75); PLATELET COUNT 175 10^3/uL (130-400); RED CELL DISTRIBUTION WIDTH 12.6 % (10.0-14.5)
[2020-02-07 16:16] LABS: ALANINE AMINOTRANSFERASE 13 U/L (0-55); ALBUMIN 4.4 GM/DL (3.2-4.5); ALKALINE PHOSPHATASE 65 U/L (40-136); BILIRUBIN,TOTAL 0.2 MG/DL (0.1-1.0); BUN/CREATININE RATIO 12; CALCIUM 9.5 MG/DL (8.5-10.1); CARBON DIOXIDE 23 MMOL/L (21-32); CHLORIDE 102 MMOL/L (98-107); CREATININE SERUM 0.73 MG/DL (0.60-1.30); GFR ESTIMATED > 60; GLUCOSE 116 MG/DL (70-105); POTASSIUM 4.2 MMOL/L (3.6-5.0); SODIUM 140 MMOL/L (135-145); TOTAL PROTEIN 7.4 GM/DL (6.4-8.2)
[2020-02-07 16:26] LABS: BAND NEUTROPHILS 6 %; BASOPHILS % (MANUAL) 0 %; EOSINOPHILS % (MANUAL) 0 %; LYMPHOCYTES % (MANUAL) 4 %; MONOCYTES % (MANUAL) 1 %; NEUTROPHILS % (MANUAL) 89 %
[2020-02-07 16:27] LABS: RBC MORPH NORMAL
== END ==
LOC: LAB FS 15:13
PROVIDERS: ATTEND Nurse Practitioner Family
DX: J45.909 Unspecified asthma, uncomplicated (principal); M54.6 Pain in thoracic spine
CPT/HCPCS: 36415; 71275; 80053; 85007; 85027; 85379

== ENCOUNTER → 2020-02-07 | Outpatient (CLI) | payer MEDICAID ==
[~2020-02-07] MED LIST changes: -CATHETER FLUSH 10 ML SYR IV PRN; -HOLD METFORMIN - RECEIVED CONTRAST 20 ML VIAL IV SCH; -IOHEXOL 350 MG/ML 150 ML (OMNIPAQUE 350) VIAL IV ONE; -NS 100 ML (IVPB) BAG IV ONE
--- NOTE | 2020-02-07 13:36 | Diagnostic Imaging Report ---
EXAMINATION: Chest 2 view HISTORY: Shortness of breath. Chest pain. History of asthma. COMPARISON: Chest radiograph on 01/29/2019. FINDINGS: There is volume loss and consolidative opacities throughout the right upper lobe. The remainder of the lungs are well aerated. The cardiac silhouette is unremarkable. No large pleural effusion or pneumothorax. No acute osseous abnormalities. IMPRESSION: 1. Volume loss and opacities throughout the right upper lobe. This appearance can be seen with compression of the right upper lobe bronchus secondary to hilar or mediastinal mass. Given these findings, further evaluation with CT chest with contrast is recommended. Faxed to Deborah Thapa APRN at 1:35 p.m. by mansi. Dictated by: Dictated on workstation # [id number]
== END ==
LOC: RAD FS 13:01
PROVIDERS: ATTEND Nurse Practitioner Family
DX: J45.909 Unspecified asthma, uncomplicated (principal); M54.6 Pain in thoracic spine
CPT/HCPCS: 71046

== ENCOUNTER → 2020-07-29 | Outpatient (CLI) | payer MEDICAID ==
[~2020-07-29] MED LIST changes: +AMOX1TAB11 PO; +AZIT250T12 PO; +IPRA3AMP31; +IPRATROPIUM/; +LEVO500T80; +PRD10T; +PRED10TA22 PO; +RT-ALBUINH IH
--- NOTE | 2020-07-29 10:56 | Diagnostic Imaging Report ---
INDICATION: Left-sided pain FINDINGS: Two-view left rib revealed no fracture deformity, bony destruction or abnormal periosteal reaction. The left lung and pleural space appeared unremarkable. IMPRESSION: Negative left rib series. Dictated by: Dictated on workstation # [id number]
--- NOTE | 2020-07-29 12:10 | Diagnostic Imaging Report ---
INDICATION: Left-sided back pain. TIME OF EXAM: 09:39 a.m. EXAMINATION: Frontal and lateral views of the thoracic spine were obtained. FINDINGS: Curvature and alignment is normal. Vertebral body heights are maintained. No acute compression fracture is seen. Pedicles are intact. The paraspinous line is intact. IMPRESSION: No acute bony abnormality is detected. Dictated by: Dictated on workstation # [id number]
== END ==
LOC: RAD FS 09:28
PROVIDERS: ATTEND Family Medicine
DX: M54.6 Pain in thoracic spine (principal); R07.81 Pleurodynia
CPT/HCPCS: 71100; 72070

== ENCOUNTER 2022-07-25 16:10 | Emergency (ER) | payer OTHER, MEDICAID ==
[~2022-07-25] VITALS: Ht 165 cm; Wt 54.0 kg
[~2022-07-25 16:10] MED LIST changes: +LEVO-55; -LEVO500T80
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
[2022-07-25] MEDS ORDERED: CEPHALEXIN 250 MG (KEFLEX) CAP PO STA (18:56)
[2022-07-25] MEDS ORDERED: RX-CYCLOBENZAPRINE 10 MG (FLEXERIL) TAB PPK#3 PO STA (18:56)
[2022-07-25] MEDS ORDERED: TETANUS,DIPTH,PERTUSS P/F (BOOSTRIX) 0.5 ML VIAL IM ONE (19:00)
[2022-07-25] MEDS ORDERED: CEPH500C PO (19:10)
[2022-07-25] MEDS ORDERED: IBUP-1780 PO (19:10)
[2022-07-25] MEDS ORDERED: CYCL10TA25 PO (19:10)
[2022-07-25 19:25] VITALS: BP 105/75
== END 2022-07-25 19:30 | disposition home or self-care (01) ==
LOC: EDUNIT# 16:10 → ER FS 16:11
DX: S90.851A Superficial foreign body, right foot, initial encounter (principal); S40.011A Contusion of right shoulder, initial encounter; S70.01XA Contusion of right hip, initial encounter; F17.210 Nicotine dependence, cigarettes, uncomplicated; Z23 Encounter for immunization; V48.5XXA Car driver injured in noncollision transport accident in traffic accident, initial encounter; Y92.410 Unspecified street and highway as the place of occurrence of the external cause
CPT/HCPCS: 73030; 73502; 73630; 90471; 90715

== ENCOUNTER 2022-08-08 17:03 | Emergency (ER) | payer OTHER, MEDICAID ==
[~2022-08-08 17:03] MED LIST changes: +CEPH500C PO; +CYCL10TA25 PO; +IBUP-1780 PO
[2022-08-08] MEDS ORDERED: IBUPROFEN 800 MG (MOTRIN) TAB PO STA (17:12)
[2022-08-08] MEDS ORDERED: LIDOCAINE 1% INJ 50 ML (XYLOCAINE) VIAL IJ STA (17:12)
[2022-08-08] MEDS ORDERED: LIDOCAINE 1% INJ 20 ML VIAL ONE (17:17)
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
[2022-08-08 18:12] VITALS: BP 121/82
== END 2022-08-08 18:15 | disposition home or self-care (01) ==
LOC: EDUNIT# 17:03 → ER FS 17:04
DX: S67.191A Crushing injury of left index finger, initial encounter (principal); W23.1XXA Caught, crushed, jammed, or pinched between stationary objects, initial encounter
CPT/HCPCS: 12001; 29130; 64450; 73140

== ENCOUNTER 2022-08-19 14:23 | Emergency (ER) | payer OTHER, MEDICAID ==
[~2022-08-19] VITALS: Ht 165.1 cm; Wt 54.4 kg
[~2022-08-19 14:23] MED LIST changes: +ALBU8.5H6 IH; -RT-ALBUINH IH
--- NOTE | 2022-08-19 14:35 | ED Suture Removal/Wound Check ---
Suture/Wound Re-check General Appearance: WD/WN, no apparent distress Skin Exam: normal color, warm/dry Physical Exam Vital Signs Vital Signs - First Documented 08/19/22 14:34 Temp 36.4 Pulse 75 Resp 18 Pulse Ox 98 O2 Delivery Room Air Capillary Refill : General Appearance: WD/WN Departure Impression Primary Impression: Visit for suture removal Disposition: HOME, SELF-CARE Condition: Stable Departure-Patient Inst. Referrals: LISSET OLIVEROS MD (PCP) Primary Care Physician SAMINA DAWSON MD Aug 19, 2022 14:35
== END 2022-08-19 14:41 | disposition home or self-care (01) ==
LOC: EDUNIT# 14:23 → ER FS 14:24
DX: S61.211D Laceration without foreign body of left index finger without damage to nail, subsequent encounter (principal); X58.XXXD Exposure to other specified factors, subsequent encounter

== ENCOUNTER 2023-02-02 11:03 | Emergency (ER) | payer MEDICAID, OTHER ==
[~2023-02-02] VITALS: Ht 165 cm; Wt 60.5 kg
[2023-02-02 11:10] VITALS: BP 112/77
[2023-02-02] MEDS ORDERED: DOXYCYCLINE 100 MG (VIBRAMYCIN) TABLET PO STA (11:14)
[2023-02-02] MEDS ORDERED: AUGMENTIN 875 MG TAB (AMOXICILLIN/CLAVULANATE) PO STA (11:14)
[2023-02-02] MEDS ORDERED: RT-ALBUTEROL/IPRATROPIUM 3 ML (DUONEB) VIAL INH ONE (11:15)
[2023-02-02] MEDS ORDERED: METH4TAB10 PO (11:20)
[2023-02-02] MEDS ORDERED: AMOX1TAB12 PO (11:20)
[2023-02-02] MEDS ORDERED: DOXY100T2 PO (11:21)
--- NOTE | 2023-02-02 11:22 | ED Respiratory ---
General Chief Complaint: Respiratory Problems Stated Complaint: SOB Source: patient, old records Exam Limitations: no limitations History of Present Illness Date Seen by Provider: Feb 02, 2023 Time Seen by Provider: 11:05 Initial Comments 27-year-old female with past medical history of asthma coming in due to concerns for an asthma exacerbation. She had a viral illness for over a week, went to the urgent care and they confirmed that she had a viral illness. Has not been prescribed anything. She has gone through a full albuterol inhaler in 4 days because she is needing it so much. She is also using her Advair discus as prescribed. Wheezing is significant, and she is wondering if it is from the extra pollen count. She is on an allergy pill daily. Does endorse dry cough. Denies any significant chest pain, fever, lower extremity swelling or pain, history of DVT or PE, or any other concerns. Allergies and Home Medications Allergies Coded Allergies: divalproex sodium (Verified Adverse Reaction, Unknown, hallucinations, 01/29/19) Patient Home Medication List Home Medication List Reviewed: Yes Albuterol Sulfate (Ventolin Hfa) 1 Puff Puff, 2 PUFF IH Q4H Prescribed by: CASSIE VEGA on 02/09/20 1125 Albuterol Sulfate (Ventolin Hfa) 90 Mcg Hfa.aer.ad, 2 PUFF INH Q4H PRN for WHEEZING Prescribed by: ROXIE ARIAS on 02/02/23 112 Amoxicillin/Potassium Clav (Amox Tr-K Clv 500-125 mg Tab) 1 Each Tablet, 500 MG PO BID WITH MEALS Prescribed by: CASSIE VEGA on 02/09/20 112 Amoxicillin/Potassium Clav (Amox Tr-K Clv 875-125 mg Tab) 875 Mg-125 Mg Tablet, 1 EACH PO BID Prescribed by: ROXIE ARIAS on 02/02/23 112 Azithromycin (Azithromycin) 250 Mg Tablet, 250 MG PO DAILY Prescribed by: CASSIE VEGA on 02/09/20 112 Cephalexin (Cephalexin) 500 Mg Capsule, 500 MG PO TID Prescribed by: SHAKEEL CROCKETT on 07/25/221909 Cyclobenzaprine HCl (Cyclobenzaprine HCl) 10 Mg Tablet, 10 MG PO Q8H PRN for SPASMS Prescribed by: SHAKEEL CROCKETT on 07/25/221909 Doxycycline Hyclate (Doxycycline Hyclate) 100 Mg Tablet, 100 MG PO BID Prescribed by: ROXIE ARIAS on 02/02/23 112 Fluticasone/Salmeterol (Advair 250-50 Diskus) 1 Each Blst.w.dev, 1 EACH IH BID Prescribed by: ANTHONY ERNST on 01/29/19 111 Ibuprofen (Ibuprofen) 800 Mg Tablet, 800 MG PO Q8H PRN for PAIN Prescribed by: SHAKEEL CROCKETT on 07/25/221909 Methylprednisolone (Methylprednisolone Dose Pack) 4 Mg Tab.ds.pk, 4 MG PO UD Prescribed by: ROXIE ARIAS on 02/02/231119 Naproxen (Naprosyn) 500 Mg Tablet, 500 MG PO BID Prescribed by: ANTHONY ERNST on 01/29/191116 Prednisone (Prednisone) 10 Mg Tab.ds.pk, 10 MG PO DAILY Prescribed by: CASSIE VEGA on 02/09/20 112 Review of Systems Review of Systems Constitutional: No fever EENTM: no symptoms reported Respiratory: see HPI Cardiovascular: no symptoms reported Gastrointestinal: no symptoms reported Genitourinary: no symptoms reported Musculoskeletal: no symptoms reported Skin: no symptoms reported Psychiatric/Neurological: No Symptoms Reported Hematologic/Lymphatic: No Symptoms Reported Past Hktfcyn-Rbdgxo-Pdnfje Hx Patient Social History Tobacco Use?: Yes Tobacco type used: Cigarettes Immunizations Up To Date Tetanus Booster (TDap): Unknown Seasonal Allergies Seasonal Allergies: No Past Medical History Surgeries: Yes Section Respiratory: Yes Asthma Cardiac: No Neurological: No Genitourinary: No Gastrointestinal: No Musculoskeletal: No Endocrine: No HEENT: No Cancer: No Psychosocial: No Integumentary: No Blood Disorders: No Physical Exam Capillary Refill : Height: 5'5.00" Weight: 135lbs. oz. [id number]; 19.00 BMI Method:Stated General Appearance: WD/WN, no apparent distress Eyes: Bilateral Eye Normal Inspection HEENT: PERRL/EOMI, normal ENT inspection, pharynx normal Neck: non-tender, full range of motion, supple Respiratory: chest non-tender, no respiratory distress, no accessory muscle use, wheezing Cardiovascular: regular rate, rhythm, no edema, no murmur Gastrointestinal: normal bowel sounds, non tender, soft; No distended, No guarding, No rebound Extremities: normal range of motion, non-tender, normal inspection, no pedal edema, no calf tenderness, normal capillary refill Neurologic/Psychiatric: no motor/sensory deficits, alert, normal mood/affect Skin: normal color, warm/dry Procedures/Interventions Suture Size: 4-0 Progress/Results/Core Measures Suspected Sepsis SIRS Temperature: Pulse: Respiratory Rate: Blood Pressure / Mean: Results/Orders My Orders Orders - ROXIE ARIAS MD Chest Pa/Lat (2 View) (02/02/23 11:14) Amoxicillin/Clavulanate Tablet (Augmenti (02/02/23 11:14) Doxycycline Hyclate Tablet (Vibramycin T (02/02/23 11:14) Albuterol/Ipra Inhalation Soln (Duoneb I (02/02/23 11:15) Dexamethasone Oral Soln (Ed) (Decadron I (02/02/23 11:14) Vital Signs/I&O Capillary Refill : Progress Note : Progress Note 27-year-old female with above history coming in short of breath with history of asthma. ABCs were intact and vitals were stable on presentation. She had significant wheezing in all lung aaron on exam but has normal oxygen saturation, is not using any accessory muscles, and is ambulating comfortably. She was given a DuoNeb, Decadron, Augmentin, doxycycline. I reviewed her hospital stay years ago where she was admitted for pneumonia and asthma exacerbation. She saw pulmonology at that time and this is the regimen she was discharged on. I will send her prescription for antibiotics as well as a Medrol Dosepak. I will refill her albuterol as well. Chest x-ray ordered and interpreted by me showing no obvious focal infiltrate, no pneumothorax, normal cardiac silhouette. Considered getting lab work including CBC, CMP, and viral studies, but she is afebrile, not tachycardic, and no clinical signs of being septic at this time. I believe she is otherwise stable for discharge with outpatient follow-up. She was sent home with strict return precautions. Diagnostic Imaging Diagonstic Imaging: Xray (chest) Comments NAME: YULI HILL MED REC#: [id number] PT STATUS: REG ER : 1995 PHYSICIAN: ROXIE ARIAS MD ADMIT DATE: 02/02/23/ER FS Draft Date of Exam:02/02/23 CHEST PA/LAT (2 VIEW) INDICATION: Asthma, shortness of breath. EXAMINATION: PA and lateral chest obtained at 11:22 AM. FINDINGS: The heart and mediastinal silhouette are normal in appearance. The lungs are clear. There is no pneumothorax or pleural fluid. IMPRESSION: Negative chest. Dictated on workstation # [id number] Dict: 02/02/23 1125 Trans: 02/02/23 1127 [id number] Interpreted by: LELO JOYA MD Electronically signed by: Departure Impression Primary Impression: Asthma exacerbation Qualified Codes: J45.41 - Moderate persistent asthma with (acute) exacerbation Disposition: HOME, SELF-CARE Condition: Stable Departure-Patient Inst. Decision time for Depature: 11:45 Referrals: ZOILA VILLALTA APRN (PCP) Primary Care Physician [facility] (Family) Primary Care Physician Patient Instructions: Asthma, Adult ED Add. Discharge Instructions: You are having an asthma exacerbation which likely was started from a viral illness. You will be on 2 different antibiotics. The doxycycline will be for 5 days and you will take it twice a day. The amoxicillin with clavulanic acid will be for 7 days and you will take that twice a day. You will also be on a steroid Dosepak. The next dose of antibiotics you can take tonight before bed. Start the steroid pack tomorrow, since you got a large dose in the ER today Scripts Albuterol Sulfate (Ventolin Hfa) 90 Mcg Hfa.aer.ad 2 PUFF INH Q4H PRN for WHEEZING for 30 Days, #1 UNIT 2 Refills 1 PUFF = 90 MCG Prov: ROXIE ARIAS MD 02/02/23 Doxycycline Hyclate (Doxycycline Hyclate) 100 Mg Tablet 100 MG PO BID for 5 Days, #10 TAB 0 Refills Prov: ROXIE ARIAS MD 02/02/23 Methylprednisolone (Methylprednisolone Dose Pack) 4 Mg Tab.ds.pk 4 MG PO UD for 6 Days, #21 PKG PER DOSE PACK INSTRUCTIONS Prov: ROXIE ARIAS MD 02/02/23 Amoxicillin/Potassium Clav (Amox Tr-K Clv 875-125 mg Tab) 875 Mg-125 Mg Tablet 1 EACH PO BID for 7 Days, #14 TAB Prov: ROXIE ARIAS MD 02/02/23 Work/School Note: Work Release Form Date Seen in the Emergency Department: Feb 02, 2023 Return to Work: Feb 04, 2023 Restrictions: No Restrictions ROXIE ARIAS MD Feb 02, 2023 11:22
[2023-02-02] MEDS ORDERED: ALBU8.5H6 INH (11:24)
--- NOTE | 2023-02-02 11:28 | Diagnostic Imaging Report ---
INDICATION: Asthma, shortness of breath. EXAMINATION: PA and lateral chest obtained at 11:22 AM. FINDINGS: The heart and mediastinal silhouette are normal in appearance. The lungs are clear. There is no pneumothorax or pleural fluid. IMPRESSION: Negative chest. Dictated by: Dictated on workstation # [id number]
== END 2023-02-02 11:46 | disposition home or self-care (01) ==
LOC: EDUNIT# 11:03 → ER FS 11:05
DX: J45.901 Unspecified asthma with (acute) exacerbation (principal); F17.210 Nicotine dependence, cigarettes, uncomplicated; Z28.310 Unvaccinated for COVID-19
CPT/HCPCS: 71046; 94640

== ENCOUNTER 2023-04-07 05:17 | Emergency (ER) | payer MEDICAID ==
[~2023-04-07 05:17] MED LIST changes: +ALBU8.5H6 INH; +AMOX1TAB12 PO; +DOXY100T2 PO; +METH4TAB10 PO
[2023-04-07] MEDS ORDERED: ALBU2.5V4 INH (05:26)
[2023-04-07] MEDS ORDERED: FLUT1DIS26 IH (05:26)
[2023-04-07] MEDS ORDERED: RT-ALBUINH INH (05:26)
--- NOTE | 2023-04-07 05:27 | ED Dyspnea ---
General Chief Complaint: Respiratory Problems Stated Complaint: SOB Source of Information: Patient Exam Limitations: No Limitations History of Present Illness Date Seen by Provider: Apr 07, 2023 Time Seen by Provider: 05:16 Initial Comments 28-year-old female with asthma presents for shortness of breath. Symptoms started at 6 PM last night. She has been out of her inhalers, Advair, albuterol as well as nebulized solution at home. She states she has Advair waiting to be picked up but she is has not done so. She does not typically need her rescue inhaler or nebulizer so she has not had these filled in some time. She denies any fevers or chills. She has diffuse wheezing that is worse when she tries to sleep. No unilateral lower extremity pain or swelling. All other systems reviewed and negative except documented per HPI. Voice recognition software was used to help create this chart Allergies and Home Medications Allergies Coded Allergies: divalproex sodium (Verified Adverse Reaction, Unknown, hallucinations, 01/29/19) Patient Home Medication List Home Medication List Reviewed: Yes Albuterol Sulfate (Ventolin Hfa) 1 Puff Puff, 2 PUFF IH Q4H Prescribed by: CASSIE VEGA on 02/09/20 1125 Albuterol Sulfate (Ventolin Hfa) 90 Mcg Hfa.aer.ad, 2 PUFF INH Q4H PRN for WHEEZING Prescribed by: ROXIE ARIAS on 02/02/23 1124 Amoxicillin/Potassium Clav (Amox Tr-K Clv 500-125 mg Tab) 1 Each Tablet, 500 MG PO BID WITH MEALS Prescribed by: CASSIE VEGA on 02/09/20 1125 Amoxicillin/Potassium Clav (Amox Tr-K Clv 875-125 mg Tab) 875 Mg-125 Mg Tablet, 1 EACH PO BID Prescribed by: ROXIE ARIAS on 02/02/23 1120 Azithromycin (Azithromycin) 250 Mg Tablet, 250 MG PO DAILY Prescribed by: CASSIE VEGA on 02/09/20 112 Cephalexin (Cephalexin) 500 Mg Capsule, 500 MG PO TID Prescribed by: SHAKEEL CROCKETT on 07/25/221909 Cyclobenzaprine HCl (Cyclobenzaprine HCl) 10 Mg Tablet, 10 MG PO Q8H PRN for SPASMS Prescribed by: SHAKEEL CROCKETT on 07/25/221909 Doxycycline Hyclate (Doxycycline Hyclate) 100 Mg Tablet, 100 MG PO BID Prescribed by: ROXIE ARIAS on 02/02/23 112 Fluticasone/Salmeterol (Advair 250-50 Diskus) 1 Each Blst.w.dev, 1 EACH IH BID Prescribed by: ANTHONY ERNST on 01/29/19 111 Ibuprofen (Ibuprofen) 800 Mg Tablet, 800 MG PO Q8H PRN for PAIN Prescribed by: SHAKEEL CROCKETT on 07/25/221909 Methylprednisolone (Methylprednisolone Dose Pack) 4 Mg Tab.ds.pk, 4 MG PO UD Prescribed by: ROXIE ARIAS on 02/02/231119 Naproxen (Naprosyn) 500 Mg Tablet, 500 MG PO BID Prescribed by: ANTHONY ERNST on 01/29/191116 Prednisone (Prednisone) 10 Mg Tab.ds.pk, 10 MG PO DAILY Prescribed by: CASSIE VEGA on 02/09/20 112 Review of Systems Review of Systems Constitutional: see HPI Past Vxbvjii-Rfibfn-Cuixnw Hx Patient Social History Tobacco Use?: No Use of E-Cig and/or Vaping dev: No Substance use?: No Alcohol Use?: No Immunizations Up To Date Tetanus Booster (TDap): Unknown Seasonal Allergies Seasonal Allergies: No Past Medical History Surgeries: Yes Section Respiratory: Yes Asthma Cardiac: No Neurological: No Genitourinary: No Gastrointestinal: No Musculoskeletal: No Endocrine: No HEENT: No Cancer: No Psychosocial: No Integumentary: No Blood Disorders: No Physical Exam Vital Signs Capillary Refill : Height, Weight, BMI Height: 5'5.00" Weight: 135lbs. oz. [id number]; 22.00 BMI Method:Stated General Appearance: No Apparent Distress, WD/WN HEENT: Normal ENT Inspection, Pharynx Normal Neck: Full Range of Motion, Normal Inspection, Non Tender, Supple Respiratory: Chest Non Tender, No Accessory Muscle Use, No Respiratory Distress, Wheezing (Diffuse inspiratory and expiratory wheezing bilaterally) Cardiovascular: Regular Rate, Rhythm, No Murmur Gastrointestinal: Normal Bowel Sounds, Non Tender, Soft Extremity: Normal Capillary Refill, Normal Inspection, Normal Range of Motion, Non Tender, No Calf Tenderness Neurologic/Psychiatric: Alert, Oriented x3, Normal Mood/Affect Skin: Normal Color, Warm/Dry Procedures/Interventions Suture Size: 4-0 Departure Communication (Admissions) Patient is hemodynamically stable with oxygen saturation 94 to 95% on room air. She does have significant bilateral wheezing inspiratory and expiratory. There is improved after DuoNeb solution. There are no focal adventitial lung sounds and this is likely all related asthma not pneumonia, pneumothorax or other acute emergent medical condition. She is given p.o. prednisone here. I have written prescriptions for Advair, Ventolin inhaler as well as albuterol nebulizer solution. She will be discharged home in stable condition with close follow-up. Impression Primary Impression: Asthma exacerbation Qualified Codes: J45.21 - Mild intermittent asthma with (acute) exacerbation Disposition: HOME, SELF-CARE Condition: Stable Departure-Patient Inst. Referrals: ZOILA VILLALTA APRN (PCP) Primary Care Physician [facility] (Family) Primary Care Physician Patient Instructions: Asthma, Adult (DC) Add. Discharge Instructions: Use your Advair inhaler daily. Use your Ventolin inhaler as well as nebulized albuterol as needed. Follow-up with your primary doctor for any nonemergent needs. Return to the emergency department for any severe concerns. All discharge instructions reviewed with patient and/or family. Voiced understanding. Scripts Albuterol Sulfate (Albuterol Sulfate) 2.5 Mg/3 Ml (0.083 %) Vial.neb 2.5 MG INH Q3H for Wheezing for 30 Days, #20 EA Prov: AISHA PERLA DO 04/07/23 Albuterol Sulfate (VENTOLIN HFA) 1 Puff Puff 2 PUFF INH Q4H for Wheezing for 30 Days, #1 EA 1 PUFF = 90 MCG Prov: AISHA PERLA DO 04/07/23 Fluticasone/Salmeterol (Advair 250-50 Diskus) 250 Mcg-50 Mcg/Dose Blst.w.dev 1 EACH IH BID for 30 Days, #1 EA Prov: AISHA PERLA DO 04/07/23 AISHA PERLA DO Apr 07, 2023 05:27
[2023-04-07] MEDS ORDERED: predniSONE 20 MG TAB PO ONE (05:30)
[2023-04-07] MEDS ORDERED: RT-ALBUTEROL/IPRATROPIUM 3 ML (DUONEB) VIAL INH ONE (05:30)
[2023-04-07 05:46] VITALS: BP 128/81
[2023-04-07] MEDS ORDERED: PRD50T PO (05:47)
== END 2023-04-07 05:47 | disposition home or self-care (01) ==
LOC: EDUNIT# 05:17 → ER FS 05:18
DX: J45.901 Unspecified asthma with (acute) exacerbation (principal); Z79.51 Long term (current) use of inhaled steroids; Z28.310 Unvaccinated for COVID-19
CPT/HCPCS: 99283